=== PATIENT | female | born 1980 | race Caucasian/White ===

== ENCOUNTER 2018-10-13 12:20 | Day surgery (SDC) | payer OTHER, SELFPAY ==
--- NOTE | 2018-10-12 12:45 | HP.PCM_ITS ---
History and Physical Date of Admission: 10/13/18 38 year old who presents with complaints of?heavy and irregular bleeding.Bleeds for up to 3 weeks at a time. ?Some clots. ?Sometimes heavy. ?[place] and tired w/ menses. ?Also c/o acne breakouts past 6 months, face and extremities as well. ?Irritability. ?Cramping mild to moderate, doesn't limit activites. ?Fatigue does limit activities. ?Feels immune system is down. ?This week she notes she feels orthostatic hyptoension. ?When changes position gets lightheaded. ? ? LMP:?Patient's last menstrual period was 09/15/2018 (exact date).? Up until this past year they were absent. ?Was on meds that suppressed her menses (psychiatric). ?When stopped them pain was heavy. Heavy bleeding??Yes Intermenstrual bleeding/spotting??No Dysmenorrhea??Yes History of fibroids??No History of endometrial polyps??on last US report only ? Sexually active:?Yes History of STDS:?None Patient concerns for STD exposure:?No. Pain with intercourse:?No Postcoital bleeding:?No ? Last Pap:?2015?normal??HPV: negative History of abnormal pap:?Yes ? PAST?MEDICAL?HISTORY PAST MEDICAL HISTORY Diagnosis Date ? Abnormal glandular Papanicolaou smear of cervix 2006 ? Abn. Pap smear (cervix)-cervical dysplagia ? Cyclothymic disorder ? ? Depression ? ? PTSD (post-traumatic stress disorder) ? ? Spontaneous 1999 ? no D&C ? Spontaneous 07/2007 ? no D&C PAST?SURGICAL?HISTORY PAST SURGICAL HISTORY Procedure Laterality Date ? DELIVERY ONLY ? 2009 ? , low transverse ? COLPOSCOPY ([employer] DEPT)_*FL ? 2006 ? x 2 ? LEEP PROCEDURE ([employer] DEPT)_*FL ? 2006 ? cervical dysplagia ? RECONSTRUCT PROX HUMERAL IMPLANT ? ? ? Arthroplasty, shoulder FAMILY?HISTORY FAMILY HISTORY Problem Relation Age of Onset ? None Mother ? ? Hyperlipidemia Mother ? ? Hypertension Mother ? ? Obesity Father ? ? Hyperlipidemia Father ? ? Hypertension Father ? ? Macular Degen Father ? ? Cancer Maternal Grandfather ?Lung-Smoker ? Cancer Paternal Grandfather ? ? Heart Paternal Grandfather ? SOCIAL HISTORY? SOCIAL?HISTORY Social History ? Tobacco Use ? Smoking status: Light Tobacco Smoker ? ? Packs/day: 2.00 ? ? Types: Cigarettes ? Smokeless tobacco: Never Used ? Tobacco comment: 5 cigarettes per day . Quit x 2months. Resumed Mar 2016 . Substance Use Topics ? Alcohol use: No ? Drug use: No ? REVIEW OF SYSTEMS General - wt loss 63 lbs, attempted Endocrine:?,?no heat or cold intolerance, no p;olyuria, or polydipsia, no hirsutism or hair thining. Acne?YES. Abdomen:?No abdominal pain, nausea, vomiting, diarrhea, or constipation. ??No bloating, early satiety, indigestion, or increased flatulence. Bladder:?No dysuria, gross hematuria, urinary frequency, urinary urgency, or incontinence. ? EXAM:?BP 112/74 Wt 214 lb (97.1kg) LMP 09/15/2018? GENERAL:?pleasant, ?female in no apparent distress HEENT:?Normocephalic, atraumatic, mucus membranes moist and no lesions NECK:?Supple, full range of motion, no adenopathy and thyroid normal DERMATOLOGY:?Normal, without lesions, non-icteric, non-hirsute and?cystic acne extremeties, chest, less on face, mostly acne vulgaris on face CHEST:?Normal inspiratory effort ABDOMEN:?soft, non-tender and no masses PELVIC:?external genitalia normal, normal Bartholin's glands, urethra, Natural Steps's glands, no vulvar lesions, no cervical lesions, good vaginal support, physiologic discharge present, normal appearing perineal body and perianal region BIMANUAL:?uterus normal size, shape and consistency, no adnexal masses and non- tender IMAGING pelvic US reviewed ? ASSESSMENT:?endometrial polyp, menorhagia, contraception discussion, ? PLAN: risks benefits and alternatives to various therapeutic options were discussed with the patient, her questions were answered her satisfaction. She desires to proceed with hysteroscopy dilation and curettage, possible polyp resection and Mirena IUD insertion. This physical exam was completed in my office on 10/03/18 ? Yasmeen Phillips MD?
[2018-10-13] VITALS (8 sets, daily range): BP systolic 93–115; BP diastolic 68–91; PULSE 94–104; RESP 16; TEMP 36.1–36.6; O2SAT 94–98; BMI 38.7
[2018-10-13 12:55] LABS: Internal QC Validated? YES +Cl - CLEAR BKGD; Pregnancy, Urine Negative Negative
[2018-10-13] MEDS: Lactated Ringers 1,000 ML 50 ML IV (12:58)
[2018-10-13] MEDS: Ketorolac 30 MG/ML Syringe IV (13:02)
[2018-10-13] MEDS: Acetaminophen 500 MG Tablet 1000 MG PO (13:02)
--- NOTE | 2018-10-13 13:45 | EMB_PTH ---
PATIENT: SANGEETA TEJADA LOC: [facility] [place] U#:[id number] AGE/SX: 38/F ROOM: RE10/13/[address]: Dr. Yasmeen Phillips MD : 1980 BED: DIS: 10/13/2018 SPEC #: [id number] RECD: 10/13/18 16:37 STATUS: TEAGAN FAULKNER #: [id number] BARTOLO: 10/13/18 13:[address]: Yasmeen Phillips DEPT: SURGICAL PATHOLOGY RECD BY: Vahid Mills ENTERED: 10/14/18 10:03 SP TYPE: ENDOM BX/C MAYUR DR: Jenna Barraza Tissues: Endometrium, NOS Procedures: Surgery Specimen Level IV HEADER OPERATION: Hysteroscopy, dilation and curettage, Mirena IUD insertion PRE-OP DIAGNOSIS: Endometrial polyp, menorrhagia, contraception discussion TISSUE SUBMITTED: Endometrial curettings MICROSCOPIC DIAGNOSIS Endometrium, curettings: Transition endometrium with stromal and focal glandular breakdown. Rare strips of benign superficial squamous mucosa. Strips of benign superficial endocervix. See comment. AM:giancarlo 10/18/18 COMMENT Some of the fragments have a polypoid appearance and may represent fragments of a polyp. Clinical correlation is suggested. MICROSCOPIC DESCRIPTION Slides are reviewed. GROSS DESCRIPTION Received in fixative is one container labeled with the patient's name and designated endometrial curettings. The specimen consists of multiple fragments of hemorrhagic soft tissue mixed with mucoid tissue and blood clot that in aggregate measure 5 x 3 x 0.3 cm. The entire specimen is submitted in two cassettes. / SJ:giancarlo 10/14/18 TC:5 CPT: 33583
[2018-10-13] MEDS: Lactated Ringers 1,000 ML 75 ML IV (13:50)
--- NOTE | 2018-10-13 13:51 | PCM.DC.D&C ---
Discharge Diet: No Restrictions Discharge Activity: Return to Normal Activity, May Shower, May Take a Tub Bath - in 2 weeks. Return to work on:: 10/18/18 May shower in (days): 1 May resume sexual activity in: 2 weeks Call your doctor if your incision/area has: Sudden Increased Bleeding, Foul Smelling Discharge Call your doctor if you observe: Fever of 101 or Higher, Using more than one pad per hour - for 2 hrs in a row Allergies/Adverse Reactions: Allergies hydrocodone [From Vicodin] Allergy (Verified 10/13/18 12:37) Vomiting Sulfa (Sulfonamide Antibiotics) Allergy (Verified 10/13/18 12:37) Hives Medications to take at Discharge Acetaminophen [Tylenol] 500 mg PO Q6H PRN PRN 10/10/18 Ibuprofen 200 mg PO PRN PRN 10/10/18 Spironolactone [Aldactone] 25 mg PO DAILY 10/10/18 cycloBENZAPRine HCl [Flexeril] 10 mg PO TID PRN PRN 10/10/18 Ibuprofen [Motrin] 600 mg PO Q6H PRN #60 tab 10/13/18 Oxycodone HCl/Acetaminophen [Percocet 5/325] 1 tablet PO Q8 PRN 4 Days #8 tablet 10/13/18 The following prescriptions were given: Ibuprofen [Motrin] 600 mg PO Q6H PRN #60 tab PRN Reason: Pain Transmission Status: Pending to [id number] Oxycodone HCl/Acetaminophen [Percocet 5/325] 1 tablet PO Q8 PRN 4 Days #8 tablet PRN Reason: Breakthrough Pain (>4/10) Transmission Status[facility] Primary Care Physician: Jenna Barraza [Primary Care Provider] - Test Results: Test results from this visit will be discussed in further detail at your follow-up appointment, if applicable. Please Follow Up With: Yasmeen Phillips MD - [phone] When: 2-3 months or as needed
--- NOTE | 2018-10-13 14:17 | OP.PCM_ITS ---
Report of Operation Date of Procedure: 10/13/18 Pre-Operative Diagnosis: menorrhagia, dysmenorrhea Post-Operative Diagnosis: same Surgery/Procedure Performed:: Hysteroscopy D&C with Mirena intrauterine device insertion Description of Surgical Findings:: Normal-appearing cervix, vagina and uterine cavity lending consultant: Kayy Cardoza Type of Anesthesia:: MAC/Supplemental/Local Anesthesiologist: Nate Robison Special Medications: None Specimen's removed: Endometrial curettings Drains: None Estimated Blood Loss (mL): 10 Fluids Replaced: 600 cc lr Description of Procedure: The patient was taken to the OR where she was prepped and draped in dorsal lithotomy position. The weighted speculum was placed in the vagina and the anterior lip of the cervix was grasped with a single-tooth tenaculum. A paracervical block was administered with 1% lidocaine with 1-100,000 epinephrine solution. The cervix was dilated serially with Hegar dilators. The 5mm hysteroscope was placed into the uterine cavity and the above findings were noted. Bilateral tubal ostia were identified. The hysteroscope was removed. A gentle sharp curettage was done of the uterine cavity. The uterus sounded to 7-1/2 cm. The Mirena intrauterine device was placed in the usual sterile fashion without complications. The strings were trimmed to 2 cm. The instruments were removed from the vagina. The specimen was handed off and sent to pathology. All sponge and needle counts were correct. Vaginal sweep was performed by me. The patient was awakened and taken to the recovery room in stable condition. Hysteroscopic ins: 150cc normal saline Hysteroscopic outs:120cc Findings: Endometrial cavity: Normal, no fibroids or polyps noted Cervix: Normal Vagina: Normal Grafts/Implants Used: None - Complications None - Admit VTE Documentation VTE Present on Admission: No VTE Mechan Device Prophylaxis: SCD's VTE Pharm Prophylaxis ordered?: No Reason prophylaxis not ordered:: Procedure Not Indicated
[2018-10-13] MEDS: oxyCODONE 5 MG Tablet PO (15:27)
== END 2018-10-13 15:49 | disposition home or self-care (01) ==
LOC: SDC 12:21 → AC 12:22
PROVIDERS: Anesthesiology; Family Provider Family Medicine; PCP Family Medicine; Referring Provider Obstetrics & Gynecology; Visit Provider Obstetrics & Gynecology
PROC: (CPT 58300; principal; 2018-10-13 13:30)
DX: N94.6 Dysmenorrhea, unspecified (principal); N92.0 Excessive and frequent menstruation with regular cycle; L70.9 Acne, unspecified; F17.210 Nicotine dependence, cigarettes, uncomplicated; G47.30 Sleep apnea, unspecified; Z79.899 Other long term (current) drug therapy
CPT/HCPCS: 58300; 58558; 81025; 88305; J7120; J2405

== ENCOUNTER 2018-10-16 18:16 | Emergency (ER) | payer OTHER, SELFPAY ==
[2018-10-13 12:46] VITALS: BMI 38.7
[2018-10-16 18:18] VITALS: BP 126/86; PULSE 102; RESP 17; TEMP 35.8; O2SAT 99; BMI 38.0
[2018-10-16] MEDS: 0.9% Normal Saline 1,000 ML 1000 ML IV (19:21)
[2018-10-16] MEDS: Ketorolac 30 MG/ML Syringe IV (19:22)
[2018-10-16] MEDS: DiphenhydrAMINE 50 MG/ML Syringe 25 MG IV (19:23)
[2018-10-16] MEDS: Metoclopramide 10 MG/2 ML Vial IV (19:24)
--- NOTE | 2018-10-16 20:08 | ED.DCSUM_ITS ---
History of Present Illness Chief Complaint: Headache Informant: Patient Onset: Days - Four days Context: Gradual Onset Timing: Waxes and wanes Current Severity: Moderate Maximum Severity: Moderate Narrative: Patient presents with chief complaint of headache. 4 days ago she had a hysteroscopy and a D&C and Mirena was placed. She left the hospital at 4 PM feeling well. She states the following day she had nausea and generalized headache, bordering on migraine. She thought it might be secondary to Percocet so that medication was stopped. She tried ibuprofen and Tylenol without improvement of her headache. She tried Imitrex with only mild improvement. Her DIRECTOR OF RELIGIOUS ACTIVITIES called Phenergan and to help control her nausea. She complains of pain to the bilateral temples, forehead, and base of her occiput. She does have a history of migraines but states she usually has light sensitivity with her migraines and does not have that complaint currently. She denies recent head trauma or URI symptoms. She did not have spinal anesthesia performed for her procedure. Past Medical History - Allergies and Home Meds Allergies/Adverse Reactions: Allergies hydrocodone [From Vicodin] Allergy (Verified 10/16/18 18:16) Vomiting Sulfa (Sulfonamide Antibiotics) Allergy (Verified 10/16/18 18:16) Hives Primary Care Physician: Jenna Barraza [Primary Care Provider] - Prior records reviewed: Yes Past Medical History: - - Reviewed Lives: Spouse/ Significant Other Smoking Status: Current every day smoker Review of Systems General: Denies: Chills, Fever Eyes: Denies: Visual changes - bilaterally ENT: Denies: Bilateral ear pain Cardiovascular: Denies: Chest pain Respiratory: Denies: Dyspnea Gastrointestinal: Reports: Nausea, Vomiting. Denies: Abdominal pain, Diarrhea Musculoskeletal: Denies: Neck pain, Back pain Skin: Denies: Rash Neurological: Reports: Headache. Denies: Weakness, Parasthesia Hematologic: Denies: Easy bruising Allergy: Denies: Uticaria Physical Exam Vital Signs/Narrative: Vital Signs Temp Pulse Resp BP Pulse Ox 10/16/18 18:18 96.4 F L 102 H 17 126/86 H 99 Inital Vital Signs reviewed: Yes General: Well nourished, Well developed Head: Normocephalic Eyes: Perrl ENT: Moist mucous membranes, - Neck: Supple - No meningismus Cardiovascular: Regular rate, Regular rhythm Respiratory: No distress, CTA bilaterally Abdomen: Soft, Nontender Extremities: Nontender Skin: Normal color, No rash Neurological: Alert, Oriented x3, Normal Strength, Normal Sensation Psychological: Normal affect Diagnostic/Tx/Re-eval - Medical Decision Making Patient was given Toradol, Reglan, Benadryl, and IV fluids. On repeat evaluati on she feels significantly improved. I will write her refills for her Imitrex and Flexeril, which she takes for muscle tension which triggers her headaches. She will follow-up with her primary care physician. ED Disposition - Plan for ED Patient: Disposition: Home or Assisted Living Diagnosis: Migraine Instructions: ED, Migraine (Classical) Prescriptions: cycloBENZAPRine HCl [Flexeril] 10 mg PO TID PRN #20 tablet PRN Reason: Muscle Spasm Sumatriptan Succinate [Imitrex] 50 mg PO .X1 PRN PRN #14 tablet PRN Reason: Migraine Symptoms Referrals: Jenna Barraza [Primary Care Provider] - 1-2 Days if not improving
[2018-10-16 20:41] VITALS: PULSE 90; RESP 17; O2SAT 98
== END 2018-10-16 20:42 | disposition home or self-care (01) ==
PROVIDERS: Emergency Provider Emergency Medicine; Family Provider Family Medicine; PCP Family Medicine
DX: G43.909 Migraine, unspecified, not intractable, without status migrainosus (principal); F17.200 Nicotine dependence, unspecified, uncomplicated
CPT/HCPCS: 96361; 96374; 96375; 99283; J7030; A4216

== ENCOUNTER 2018-12-29 10:56 | Emergency (ER) | payer OTHER, SELFPAY ==
[2018-12-29 10:57] VITALS: BP 124/86; PULSE 122; RESP 18; TEMP 36.6; O2SAT 100; BMI 41.1
--- NOTE | 2018-12-29 11:13 | RAD_ITS ---
STUDY: X-RAY CHEST REASON FOR EXAM: Female, 38 years old. Nausea and vomiting. Fever. Cough. TECHNIQUE: PA and lateral views of the chest. COMPARISON: None. FINDINGS: Focal lingular infiltrate. There is no demonstrated pleural abnormality. Normal size heart. Normal mediastinum and gabriella. Normal visualized pulmonary arteries. Normal visualized aortic arch and descending thoracic aorta. Normal visualized thoracic spine. Normal visualized ribs, clavicles, and shoulders. There is no demonstrated abnormality of the visualized soft tissue structures of the upper abdomen. RAD/Chest PA and Lateral IMPRESSION: Focal lingular infiltrate. Follow-up recommended. Electronically Signed: Christopher Beauchamp, at 12:31 EST , Service support ,
--- NOTE | 2018-12-29 11:33 | ED.DCSUM_ITS ---
History of Present Illness Chief Complaint: General Illness Informant: Patient Onset: Days - 4 Context: Gradual Onset Timing: Continuous Current Severity: Severe Maximum Severity: Severe Associated Symptoms: Nasal Congestion, Headache, Sinus Pressure, Nausea, Vomiting, Shortness of Breath, Productive Cough Narrative: Patient is a 38-year-old female with history of PTSD, fibromyalgia, depression and obstructive sleep apnea presenting with worsening upper story symptoms. She states she is been sick for the past week and went to urgent care yesterday. At that time she was diagnosed with sinusitis and started on Augmentin. She had 3 doses total. She is also started on Flonase which he feels is giving her headache. Patient states she still feels congested and has postnasal drip she also is complaining of lateral neck pain bilaterally but denies any stiffness. She denies any fever but does have chills. She is been nauseous for the last week but had 3 episodes of vomiting overnight. She is had a cough that progressed from a dry cough to wet cough over the last 24 hours. She cannot tell me what color the sputum has been. She denies any abdominal pain or urinary symptoms. She states is a normal bowel movements. She is reporting decreased appetite. She admits to tobacco use but denies any alcohol or illicit drug use. She is concerned because she is feeling hoarse. She denies any other complaints at this time. Past Medical History - Allergies and Home Meds Allergies/Adverse Reactions: Allergies hydrocodone [From Vicodin] Allergy (Verified 12/29/18 11:00) Vomiting Sulfa (Sulfonamide Antibiotics) Allergy (Verified 12/29/18 11:00) Hivmargie Primary Care Physician: Jenna Barraza [Primary Care Provider] - Past Medical History: - - PTSD, fibromyalgia, obstructive sleep apnea, de pression Surgical History: - - D&C, mediastinal mass removed (benign) Smoking Status: Former smoker Alcohol: None Drugs: None Review of Systems General: Reports: Chills, Malaise. Denies: Fever Eyes: Denies: Visual changes - bilaterally, Blurred Vision - bilaterally Cardiovascular: Denies: Chest pain, Palpitations, Heart racing Respiratory: Reports: Dyspnea, Cough, Sputum. Denies: Dyspnea on exertion, Orthopnea Gastrointestinal: Reports: Nausea, Vomiting. Denies: Abdominal pain, Diarrhea, Constipation Genitourinary: Denies: Dysuria, Hematuria, Frequency Musculoskeletal: Reports: Myalgias, Neck pain. Denies: Arthralgias, Swelling, Extremity Pain Skin: Denies: Rash, Wounds Neurological: Reports: Headache, - - Lightheaded. Denies: Weakness Physical Exam Vital Signs/Narrative: Vital Signs Temp Pulse Resp BP Pulse Ox 12/29/18 10:57 97.8 F 122 H 18 124/86 H 100 Inital Vital Signs reviewed: Yes General: Well nourished, Well developed Head: Normocephalic, Atraumatic. Negative for: Frontal Tenderness, Maxillary Tenderness, Sinus Tenderness Eyes: Perrl, EOMI Ears: Normal external canal, TM's clear Nose: No Rhinorrhea, Congestion. Negative for: Purulent Drainage Mouth/Throat: Posterior Oropharyngeal Erythema, - - No tonsillar edema or exudate Tonsils: Right Tonsilar Erythema, Left Tonsilar Erythema, -. Negative for: Right Tonsilar Exudates, Left Tonsilar Exudates, Right Tonsilar Swelling, Left Tonsilar Swelling Neck: Supple, Nontender, No Meningismus Cardiovascular: Regular rhythm, No murmurs, Tachycardia Respiratory: No distress, CTA bilaterally, Chest nontender Abdomen: Soft, Nontender, Nondistended, Normal bowel sounds Back: Nontender, Normal Inspection Extremities: Nontender, No edema Skin: Normal color, No rash Neurological: Alert, Oriented x3, Cranial nerves II-XII grossly intact, Normal Strength, Normal Sensation Psychological: Normal affect Diagnostic/Tx/Re-eval Chest X-Ray - ED: 2 View, Read by ED Physician, Read by Radiologist, - - Left lingular infiltrate Clinical Impression(s) from Imaging Studies Chest X-Ray 12/29/18 11:13 IMPRESSION: Focal lingular infiltrate. Follow-up recommended. Electronically Signed: Christopher Beauchamp, at 12:31 EST , Service support , Laboratory Data 12/29/18 12/29/18 11:29 11:29 WBC 11.4 H RBC 4.42 Hgb 13.5 Hct 40.8 MCV 92.3 MCH 30.5 MCHC 33.1 RDW Std Deviation 43.4 RDW Coeff of Zachary 12.9 Plt Count 351 MPV 9.5 Immature Gran % (Auto) 0.400 Neut % (Auto) 76.0 H Lymph % (Auto) 14.9 L Shoshone % (Auto) 5.3 Eos % (Auto) 2.7 Baso % (Auto) 0.7 Absolute Neuts (auto) 8.7 H Absolute Lymphs (auto) 1.70 Nucleated RBC % 0 Sodium 142 Potassium 3.8 Chloride 110 H Carbon Dioxide 25.0 Anion Gap 7 BUN 5 L Creatinine 0.65 Estim Creat Clear Calc 91.90 Est GFR (MDRD) Af Amer 131 Est GFR (MDRD) Non-Af 108 BUN/Creatinine Ratio 7.7 L Glucose 120 H Calcium 8.6 Total Bilirubin 0.30 AST 13 L ALT 22 Alkaline Phosphatase 105 Total Protein 6.8 Albumin 3.4 Globulin 3.4 Albumin/Globulin Ratio 1.0 Lipase 67 L - Medical Decision Making Patient is evaluated for worsening cough, upper respiratory symptoms and malaise. Physical exam is consistent with a viral/respiratory illness. Chest x-ray does show left lingual infiltrate. This matches patient's clinical picture as she feels that her cough has worsened. Patient is initially tachycardic on arrival. She is given IV fluids. She does not have any chest pain or sensation of palpitations. Patient is quite of a headache. It appears to be a tension headache. She does not have any meningeal signs. She is given IV Toradol. Patient has a normal neurologic exam. Patient is given first dose of doxycycline in the emergency room. She is instructed to stop taking the Augmentin. Patient does not have a history of hypertension. She is instructed to take [id number] cold and flu medications as needed for her congestion and further symptomatic relief. She is counseled on the typical timeframe it takes to heal from pneumonia. Patient is counseled on signs and symptoms requiring return to the emergency room. Patient verbalizes agreement and understand this plan. Patient discharged home in stable and improved condition. ED Disposition - Plan for ED Patient: Disposition: Home or Assisted Living Diagnosis: Pneumonia involving left lung Instructions: PNEUMONIA (Adult) Prescriptions: Doxycycline 100 mg PO BID #20 cap Prescription Printed Albuterol Inhaler [Ventolin Hfa] 1 - 2 puff INHALATION Q4H PRN PRN #1 inhaler PRN Reason: Wheezing Prescription Printed Referrals: Jenna Barraza [Primary Care Provider] - Additional Instructions: Stop taking antibiotics prescribed yesterday and start taking the ones prescribed today. Use inhaler as needed for cough or shortness of breath. Take [id number] medications for congestion/cold and flu medicine as well. Return the emergency room with worsening symptoms. Follow-up with your primary care doctor next week. Make sure you drink plenty of fluids and get plenty of rest.
[2018-12-29 11:34] LABS: Absolute Neutrophil Count 8.7 X10^3/uL (2.0-7.7); Basophil# 0.08 X10^3/uL; Basophil% 0.7 % (0-1); Eosinophil# 0.31 X10^3/uL; Eosinophils% 2.7 % (0-5); Hematocrit 40.8 % (37-47); Hemoglobin 13.5 g/dL (12.0-15.0); Lymphocyte % 14.9 % (19-41); Mean Corp Hgb Conc 33.1 g/dL (32-36); Mean Corpuscular Hgb 30.5 pg (27.0-32.0); Mean Corpuscular Volume 92.3 fL (81-99); Mean Platelet Vol. 9.5 fl (6.2-12.0); Monocyte% 5.3 % (0-10); NRBC Flagged by Analyzer 0 % (0-5); Neutrophil # 8.65 X10^3/uL (2.7-7.7); Platelet Count 351 K/mm3 (150-450); RBC Distribution Width CV 12.9 % (11.6-14.6); RBC Distribution Width SD 43.4 fl (35.1-43.9); Red Blood Count 4.42 M/mm3 (4.2-5.4); White Blood Count 11.4 K/mm3 (4.4-11.0)
[2018-12-29] MEDS: 0.9% Normal Saline 1,000 ML 1000 ML IV (11:38)
[2018-12-29 11:55] LABS: AST(SGOT) 13 U/L (15-37); Alanine Aminotransfer ALT/SGPT 22 U/L (13-56); Albumin, Serum 3.4 g/dL (3.2-5.0); Alkaline Phosphatase 105 U/L (45-117); Anion Gap 7 (5-15); BUN 5 mg/dL (7-18); BUN/Creat Ratio 7.7 RATIO (10-20); Calcium,Total 8.6 mg/dL (8.5-10.1); Chloride 110 mmol/L (98-107); Creatinine, Serum 0.65 mg/dL (0.55-1.02); EST Glomerular Filtration Rate 108 mL/min (>60); Est Glom Filt Rate - Afr Amer 131 mL/min (>60); Globulin 3.4 g/dL (2.2-4.2); Glucose 120 mg/dL (74-106); Lipase 67 U/L (73-393); Potassium 3.8 mmol/L (3.5-5.1); Protein, Total 6.8 g/dL (6.4-8.2); Sodium Level 142 mmol/L (136-145)
[2018-12-29] MEDS: Ketorolac 15 MG/ML Vial IV (12:49)
[2018-12-29 13:16] VITALS: BP 134/76; PULSE 61; RESP 16; O2SAT 97
[2018-12-29] MEDS: Doxycycline 100 MG CAPSULE PO (13:16)
== END 2018-12-29 13:17 | disposition home or self-care (01) ==
PROVIDERS: Emergency Provider Emergency Medicine; Family Provider Family Medicine; PCP Family Medicine
DX: J18.9 Pneumonia, unspecified organism (principal); R51 Headache; Z72.0 Tobacco use
CPT/HCPCS: 71046; 80053; 83690; 85025; 96361; 96374; 99284; J7030; A4216

== ENCOUNTER → 2019-01-30 15:29 | Outpatient (CLI) | payer OTHER, SELFPAY ==
[2019-01-30 17:26] LABS: Amphetamine Urine VISTA NEGATIVE (<1000 ng/mL); Barbiturate Urine VISTA NEGATIVE (< 200 ng/mL); Benzodiazepine Urine VISTA NEGATIVE (< 200 ng/mL); Cocaine Urine VISTA NEGATIVE (< 300 ng/mL); Ecstacy Urine VISTA NEGATIVE (< 500 ng/mL); Methadone Urine VISTA NEGATIVE (< 300 ng/mL); PCP Urine VISTA NEGATIVE (< 25 ng/mL); THC Urine VISTA NEGATIVE (< 50 ng/mL); Vista UDS pH Range 5
== END ==
PROVIDERS: Family Provider Family Medicine; PCP Family Medicine; Referring Provider Family Medicine; Visit Provider Anesthesiology Pain Medicine
DX: F11.20 Opioid dependence, uncomplicated (principal)
CPT/HCPCS: 80307

== ENCOUNTER → 2019-02-24 13:25 | Outpatient (CLI) | payer OTHER, SELFPAY | PROVIDERS: Family Provider Family Medicine; PCP Family Medicine; Referring Provider Orthopaedic Surgery Sports Medicine; Visit Provider Orthopaedic Surgery Sports Medicine | DX: M24.151 Other articular cartilage disorders, right hip (principal) ==

== ENCOUNTER 2019-08-29 14:00 | Outpatient (RCR) | payer OTHER, SELFPAY ==
--- NOTE | 2019-04-21 12:02 | HP.PTEVAL ---
Patient's Visit Information SANGEETA TEJADA is a 38 year old F referred to Physical Therapy by BRUNO HIDALGO with a diagnosis of B hip pain. Date of Evaluation: 04/21/19 Physical Therapist: Deondre Whelan, PT, ATC - Visit Plan Frequency: 3x /Week Duration: 4-6 Weeks Plan: Aquatic therapy consisting of core stab ex's, B LE strengthening ex's, B UE strengthening ex's, and HEP - Subjective Findings: Pt reports she has had L hip pain for greater than 3 years. Pt reports she has no idea how her pain originated. Pt reports she did have a Hx of depression and physical ailments which made her nearly bed ridden for a couple years. Pt reports this caused her to become very weak and inactive. Pt reports since then, she was able to get offf some of her meds and has become more healthy by becoming more active and in a better state with her mental health. Pt notes she has had an arthrogram of her R hip which revealed a tear of her R labrum. Pt has been getting injections in order to bypass surgery at this time. Pt notes she has a hip deformity as well. Pt notes she i s scheduled for a lidocaine injection next week. Pt reports sleep diff secondary to pain, no tingling or njumbness in LE's . Pt has been intermittently using crutches secondary to pain. walking increases pain as well as stair negotiation. pain ranges from 3-10/10 - Pain B hip pain Pain Intensity (Out of 10): 3 Pain Intensity Range: 10 - Objective Neuro: B LE sensation is WNL to light touch. B patellar reflex= 2/3. MMT: B LE's are grossly 4/5. ROM: Pt is moderately limited with R hip IR/ER. All other motions are WFL. Gait: Pt was able to ambulate 478 feet until having to sit down secondary to pain and fatigue. Pt ambulates with a very slow cadance and reaches out to the wall for support. - Goals Goal 1:: Decrease B hip pain x 25% to aid with sleep Goal Time Frame: 4-6 Weeks Goal 2:: Increase B LE strength x 1 grade to aid with stair negotiation Goal Time Frame: 4-6 Weeks Goal 3:: I with HEP Goal Time Frame: 4-6 Weeks - Rehabilitation Potential Rehabilitation Potential: Good - Anticipated Interventions Patient/Client Instruction: Educate patient on: Condition, Plan of Care For the Purpose of:: To improve self management Therapeutic Exercise to Include: Strength training, Endurance training, Dynamic Lumbar Stabilization, Scapular Strength/Stabilization For the Purpose of:: To decrease pain, To improve muscle performance and motor function Thank you for the opportunity to evaluate your patient. For Medicare and Medicare HMO plans, please review the plan of care and approve it. It will need to be FAXED BACK to us at [phone] for Medicare purposes. For Medicare only, by signing this I certify the plan of care. Please let me know if there are questions or concerns regarding this plan of care. Physician Signature: Date:
--- NOTE | 2019-07-25 13:38 | HP.PTREVAL ---
BRUNO HIDALGO, It has been my pleasure to treat SANGEETA TEJADA over the last 4 visits for B hip pain. Please see the progress note below for an update on the physical therapy plan of care! Subjective: Pt returns today after an extended illness. Pt reports she had all the signs of COVID, but tested negative. Pt reports in the mean time, she has gained a systemic flare up throughout her body that the doctors think is arthritis. Pt reports she is to have surgery on her hip in the future, but she has to get stronger first. Objective/Function: MMT: B hip flex, knee flex, and hip add 4/5. All other B LE 5/5 throughout. Pain: ranges from 0-10/10. Pt has regressed with overall tolerance for activity while being off sick. Pt is able to ambulate 1200 feet at a good pace. Pt still displays functional weakness and severe pain at times Plan Plan: Cont with aquatic therapy program consistinig of B LE and core strengthening Goals Goal 1:: Decrease B hip pain x 25% to aid with sleep Goal Time Frame: 4-6 Weeks Goal Progress: Progressing Goal 2:: Increase B LE strength x 1 grade to aid with stair negotiation Goal Time Frame: 4-6 Weeks Goal Progress: Progressing Goal 3:: I with HEP Goal Time Frame: 4-6 Weeks Goal Progress: Progressing Anticipated Interventions Patient/Client Instruction: Educate patient on: Condition, Plan of Care For the Purpose of:: To improve self management Therapeutic Exercise to Include: Strength training, Endurance training, Dynamic Lumbar Stabilization, Scapular Strength/Stabilization For the Purpose of:: To decrease pain, To improve muscle performance and motor function Please do not hesitate to contact me at [phone] by phone or if you have questions or concerns regarding this new plan of care! Sincerely, Deondre Whelan, PT, ATC
--- NOTE | 2019-08-29 14:33 | HP.PTREVAL ---
BRUNO HIDALGO, It has been my pleasure to treat SANGEETA TEJADA over the last 10 visits for B hip pain. Please see the progress note below for an update on the physical therapy plan of care! Subjective: Pt reports she has gotten worse since beginning PT. Has been told she has an RA flare up and this is what has caused her pain Objective/Function: Hip pain ranges from 0-10 out of 10. B LE strength is now 5/5 throughout. Pt is progressing with HEP Plan Plan: Pt will cont with ex's at home for 3 weeks. Recheck at that time, and consider if continuing is appropriate after pain meds are altered by Goals Goal 1:: Decrease B hip pain x 25% to aid with sleep Goal Time Frame: 4-6 Weeks Goal Progress: Progressing Goal 2:: Increase B LE strength x 1 grade to aid with stair negotiation Goal Time Frame: 4-6 Weeks Goal Progress: Goal Met Goal 3:: I with HEP Goal Time Frame: 4-6 Weeks Goal Progress: Progressing Anticipated Interventions Patient/Client Instruction: Educate patient on: Condition, Plan of Care For the Purpose of:: To improve self management Therapeutic Exercise to Include: Strength training, Endurance training, Dynamic Lumbar Stabilization, Scapular Strength/Stabilization For the Purpose of:: To decrease pain, To improve muscle performance and motor function Please do not hesitate to contact me at [phone] by phone or if you have questions or concerns regarding this new plan of care! Sincerely, Deondre Whelan, PT, ATC
--- NOTE | 2019-11-15 09:26 | HP.PT.NRP ---
SANGEETA TEJADA was seen in my office for initial evaluation on 04/21/19. The following Plan of Care was established for this patient: Initial Frequency: 3x /Week Initial Duration: 4-6 Weeks Patient/Client Instruction: Educate patient on: Condition, Plan of Care For the Purpose of:: To improve self management Therapeutic Exercise to Include: Strength training, Endurance training, Dynamic Lumbar Stabilization, Scapular Strength/Stabilization For the Purpose of:: To decrease pain, To improve muscle performance and motor function This patient was last seen in our office . Pertinent comments regarding their Physical therapy will appear below: Pt was last scheduled for PT on September 19, 2019 where she no showed for her appointment. Pt has not returned since that date and is discontinued at this time. At this point I will be discontinuing this patient from physical therapy. I would be happy to see this patient again in the future if found appropriate by the physician. Thank you! Deondre Whelan, PT, ATC
== END 2019-08-29 19:00 | disposition home or self-care (01) ==
LOC: PT 14:00
PROVIDERS: PCP Family Medicine
DX: M25.552 Pain in left hip (principal); M25.551 Pain in right hip
CPT/HCPCS: 97113; 97161; 97164

== ENCOUNTER → 2019-11-23 11:02 | Outpatient (CLI) | payer OTHER, SELFPAY ==
[2019-11-23 12:42] LABS: Amphetamine Urine VISTA NEGATIVE (<1000 ng/mL); Barbiturate Urine VISTA NEGATIVE (< 200 ng/mL); Benzodiazepine Urine VISTA NEGATIVE (< 200 ng/mL); Cocaine Urine VISTA NEGATIVE (< 300 ng/mL); Ecstacy Urine VISTA NEGATIVE (< 500 ng/mL); Methadone Urine VISTA NEGATIVE (< 300 ng/mL); PCP Urine VISTA NEGATIVE (< 25 ng/mL); THC Urine VISTA NEGATIVE (< 50 ng/mL); Vista UDS pH Range 5
== END ==
PROVIDERS: PCP Family Medicine; Referring Provider Anesthesiology Pain Medicine; Visit Provider Anesthesiology Pain Medicine
DX: F11.20 Opioid dependence, uncomplicated (principal)
CPT/HCPCS: 80307

== ENCOUNTER 2020-07-11 09:14 | Emergency (ER) | payer OTHER, SELFPAY ==
[2020-07-11 09:15] VITALS: BP 161/86; PULSE 103; RESP 16; TEMP 36.2; O2SAT 100; BMI 43.9
--- NOTE | 2020-07-11 09:44 | CT_ITS ---
STUDY: CT ABDOMEN AND PELVIS WITH CONTRAST REASON FOR EXAM: Female, 39 years old. Abdominal pain -- IV PO Contrast RADIATION DOSAGE (If Supplied By Facility): CTDIvol = ( 17.08 ) mGy, DLP = ( 1297.68 ) mGycm TECHNIQUE: Transaxial images were obtained from the dome of the diaphragm to the symphysis pubis with oral contrast. Oral and amp; IV Gastrografin and amp; 100mL Isovue-300 was administered. Sagittal and coronal images were reconstructed. Individualized dose optimization techniques were used for this CT. COMPARISON: None. FINDINGS: Minimal increased markings in the lingular segment of the left upper lobe suggestive of linear atelectasis and/or scarring. The visualized portions of the heart are within normal limits. Normal liver. Normal gallbladder and extrahepatic biliary system. Normal spleen. Normal pancreas. Normal bilateral adrenal glands. Normal right kidney. 2 mm nonobstructive calculus in the lower pole calyx of the left kidney. Normal visualized stomach. Normal small intestine. There are scattered colonic diverticula consistent with diverticulosis. The appendix is visualized and appears normal. Normal abdominal aorta. Normal inferior vena cava. There is borderline retroperitoneal lymphadenopathy with enlarged nodes no greater than 10mm in the short axis diameter. Normal urinary bladder. There is a 5.8 cm x 5.5 cm hypodense mass in the left adnexa. IUD is seen within the endometrium. There is a small umbilical hernia containing fat. Normal osseous structures. CT/Abdomen/Pelvis WITH Contrast IMPRESSION: 5.8 cm x 5.5 cm hypodense mass in the left adnexa. IUD is seen within the endometrium. Electronically Signed: Christopher Beauchamp MD at 12:23 EDT , Service support ,
--- NOTE | 2020-07-11 09:46 | EDS_ITS ---
HPI HPI - GI History of Present Illness Chief Complaint: Abd Pain Narrative Narrative: 39-year-old female presenting with abdominal pain and history of fevers over the course of this week. She states that she was previously seen and evaluated in the ED and had a CT scan which showed an ovarian cyst. She states she followed up with her [employer] who did a transvaginal ultrasound in office that showed a rupturing ovarian cyst. She states that she was previously on Nucynta for her pain from pain management however the pharmacy lost her prescription for this. She has not contacted pain management. Patient states that her pain is intermittent. It is sometimes in her left side of her abdomen and sometimes in the right side of her abdomen and now she has radiation to the back. Patient states that she is sometimes has the sweats. Her highest fever has been 101. Her temperature was 99.9 today. Denies dysuria. She states that her previous CT scan showed constipation however she has had diarrhea this week. She has been taking laxative. [facility] Medical History Asthma Home Medications spironolactone 25 mg PO DAILY 10/10/18 [History Last Taken 10/16/18] ibuprofen 600 mg PO Q6H PRN #60 tab 10/13/18 [Rx Last Taken 10/16/18] cyclobenzaprine 10 mg PO TID PRN #20 tab 10/16/18 [Rx Last Taken Unknown] promethazine 25 mg PO Q6H PRN PRN 10/16/18 [History Last Taken 10/16/18] sumatriptan succinate 50 mg PO .X1 PRN PRN #14 tab 10/16/18 [Rx Last Taken Unknown] albuterol sulfate 1 - 2 puff INHALATION Q4H PRN PRN #1 inhaler 12/29/18 [Rx Last Taken Unknown] doxycycline monohydrate 100 mg PO BID #20 cap 12/29/18 [Rx Last Taken Unknown] tapentadol [Nucynta] 100 mg PO DAILY 07/11/20 [History Last Taken Unknown] Allergy/AdvReac Type Severity Reaction Status Date / Time hydrocodone [From Vicodin] Allergy Vomiting Verified 07/11/20 09:18 Sulfa (Sulfonamide Allergy Hives Verified 07/11/20 09:18 Antibiotics) Social History Smoking Status: Former smoker ROS ROS ED Constitutional Constitutional ED: Denies chills, fever(s) or sweats Eyes Eyes: Denies blurry vision or change in vision ENT ENT ED: Denies ear pain, rhinorrhea or sore throat Cardiovascular Cardiovascular: Denies chest pain, palpitations or racing heartbeat Respiratory/Chest Respiratory/Chest: Denies cough, dyspnea or sputum Gastrointestinal Gastrointestinal: Reports abdominal pain, diarrhea and nausea; Denies const ipation or vomiting Genitourinary Genitourinary ED: Denies dysuria, hematuria or urinary frequency Musculoskeletal Musculoskeletal: Reports back pain; Denies arthralgias, myalgias or neck pain Integumentary Denies abscess, Abrasions or rash Neurologic Neurologic: Denies headache(s), paresthesias or weakness Psychiatric Psychiatric: Denies anxiety, depression, suicidal ideation or suicidal thoughts Endocrine Endocrinology: Denies polydipsia or polyuria EXAM Physical Exam Const Vital Signs: 07/11/20 09:15 Temperature 97.1 F L Temperature Source Temporal Pulse Rate 103 H Respiratory Rate 16 Blood Pressure 161/86 H Blood Pressure Mean 111 Pulse Ox 100 Oxygen Delivery Method Room Air Positive obese General Appearance ED: NAD; Negative for pallor Nutritional Appearance: obese HEENT Reports normocephalic, head/scalp atraumatic and moist mucous membranes normocephalic Eyes PERRL and EOMs intact bilaterally Chest Wall inspection of chest normal and palpation of chest normal Resp normal respiratory effort and clear to auscultation bilaterally Auscultation: Negative for rales, rhonchi or wheezes Cardio regular rate and regular rhythm GI normal to inspection, nondistended, normoactive bowel sounds and non-distended Inspection: abdominal distention Auscultation: normoactive bowel sounds Palpation: soft and tender other (Diffuse generalized tenderness of the abdomen.) Narrative: Deferred Back/Spine no CVA tenderness Back/Spine Narrative: Generalized lumbar tenderness to palpation. No midline spinal deformity or step-off. No rash or ecchymosis. General Back: Negative for CVA tenderness Extremity normal to inspection and full ROM General Extremety ED: Negative for tenderness Neuro oriented x3 and CN's II-XII intact bilaterally Sensorium / Orientation: alert Motor Exam: strength 5/5 throughout Psych mental status grossly normal Attitude: No agitated Skin no rashes or lesions noted and no wounds General Skin Exam: Negative for jaundice or pallor MDM MDM MDM Narrative Medical decision making narrative: Patient seen and evaluated on arrival for abdominal pain. She states he has had this pain. She is already had a CT scan which diagnosed her with a cyst as well as an ultrasound at her [employer]IE[employer] OFFICER's office who also stated she had a cyst. She was told that it is rupturing it may take 2 weeks. She is out of her Nucynta because the prescription was lost. Her vital signs are stable and she is afebrile. Lab work today is unremarkable. Urinalysis is negative. Again there is a cyst on the left ovary. It does not appear to be changed in size based on the patient's description. Patient was able to call her pharmacy and get the prescription corrected and she has this pain medicine now for home. She is counseled to follow-up with her [employer]IEF [employer]ETING OFFICER and her pain management doctor for pain control. She is given return precautions for the emergency room. Impression: 1. Left ovarian cyst Lab Data Labs: Laboratory Results - last 24 hr 07/11/20 07/11/20 07/11/20 10:10 10:10 10:20 WBC 9.4 RBC 4.49 Hgb 13.5 Hct 41.6 MCV 92.7 MCH 30.1 MCHC 32.5 RDW Std Deviation 43.6 RDW Coeff of Zachary 12.9 Plt Count 322 MPV 9.5 Immature Gran % (Auto) 0.400 Neut % (Auto) 71.2 H Lymph % (Auto) 22.3 [place] % (Auto) 5.7 Eos % (Auto) 0.1 Baso % (Auto) 0.3 Absolute Neuts (auto) 6.7 Absolute Lymphs (auto) 2.10 Nucleated RBC % 0 Sodium 140 Potassium 4.1 Chloride 107 Carbon Dioxide 29.0 Anion Gap 4 L BUN 8 Creatinine 0.80 Estim Creat Clear Calc 73.93 Est GFR (MDRD) Af Amer 102 Est GFR (MDRD) Non-Af 84 BUN/Creatinine Ratio 10.0 Glucose 98 Calcium 9.3 Total Bilirubin 0.40 AST 23 ALT 59 H Alkaline Phosphatase 99 Total Protein 7.2 Albumin 3.6 Globulin 3.6 Albumin/Globulin Ratio 1.0 Lipase 148 Urine Color Yellow Urine Clarity Sl. Cloudy Urine pH 6.0 Ur Specific Eldred 1.010 Urine Protein Negative Urine Glucose (UA) Normal Urine Ketones Negative Urine Occult Blood Negative Urine Nitrite Negative Urine Bilirubin Negative Urine Urobilinogen Normal Ur Leukocyte Esterase Negative Urine RBC 0 SEEN Urine WBC 0 SEEN Ur Squamous Epith Cells 0-5 SEEN Urine Bacteria 0 SEEN Urine Mucus 0 SEEN Radiography Diagnostic Testing: Radiology Impression Abdomen/Pelvis CT 07/11/20 09:44 IMPRESSION: 5.8 cm x 5.5 cm hypodense mass in the left adnexa. IUD is seen within the endometrium. Electronically Signed: Christopher Beauchamp MD at 12:23 EDT , Service support , Discharge Plan Triage Chief Complaint: Abd Pain ED Provider: [facility] Dx/Rx/DC Orders Instructions: ED Ovarian Cyst Prescriptions: No Action spironolactone 25 MG tablet 25 mg PO DAILY RF: 0 ibuprofen 600 MG tablet 600 mg PO Q6H PRN (Reason: Pain) Qty: 60 RF: 1 promethazine 25 MG tablet 25 mg PO Q6H PRN PRN (Reason: Nausea) RF: 0 sumatriptan succinate 50 MG tablet 50 mg PO .X1 PRN PRN (Reason: Migraine Symptoms) Qty: 14 RF: 0 cyclobenzaprine 10 MG tablet 10 mg PO TID PRN (Reason: Muscle Spasm) Qty: 20 RF: 0 doxycycline monohydrate 100 MG capsule 100 mg PO BID Qty: 20 RF: 0 albuterol sulfate 1 INHALER inhaler 1 - 2 puff inhalation Q4H PRN PRN (Reason: Wheezing) Qty: 1 RF: 0 Nucynta 100 mg tablet 100 mg PO DAILY RF: 0 Primary Care Provider: Juan Dasilva Referrals: Juan Dasilva MD [Primary Care Provider] - Disposition Disposition: Home, self care
[2020-07-11] MEDS: Ketorolac 15 MG/ML Vial IV (10:12)
[2020-07-11] MEDS: Ondansetron 4 MG/2 ML Vial IV (10:12)
[2020-07-11 10:19] LABS: Absolute Neutrophil Count 6.7 X10^3/uL (2.0-7.7); Basophil# 0.03 X10^3/uL; Basophil% 0.3 % (0-1); Eosinophil# 0.01 X10^3/uL; Eosinophils% 0.1 % (0-5); Hematocrit 41.6 % (37-47); Hemoglobin 13.5 g/dL (12.0-15.0); Lymphocyte % 22.3 % (19-41); Mean Corp Hgb Conc 32.5 g/dL (32-36); Mean Corpuscular Hgb 30.1 pg (27.0-32.0); Mean Corpuscular Volume 92.7 fL (81-99); Mean Platelet Vol. 9.5 fl (6.2-12.0); Monocyte# 0.54 X10^3/uL; Monocyte% 5.7 % (0-10); NRBC Flagged by Analyzer 0 % (0-5); Neutrophil # 6.68 X10^3/uL (2.7-7.7); Neutrophil % 71.2 % (47-70); Platelet Count 322 K/mm3 (150-450); RBC Distribution Width CV 12.9 % (11.6-14.6); RBC Distribution Width SD 43.6 fl (35.1-43.9); Red Blood Count 4.49 M/mm3 (4.2-5.4); White Blood Count 9.4 K/mm3 (4.4-11.0)
[2020-07-11 10:27] LABS: Bacteria 0 SEEN /hpf (None Seen); Mucous, Urine 0 SEEN /hpf (<or=2+); Red Blood Cells-Urine 0 SEEN /hpf (0-5); White Blood Cells 0 SEEN /hpf (0-5)
[2020-07-11 10:31] LABS: Color, Urine Yellow (Yellow); Glucose, Dipstick Normal (Normal); Ketone-Dipstick Negative (Negative); Leukocyte Esterase-Dipstick Negative /ul (Negative); Nitrite-Dipstick Negative (Negative); Occult Blood-Urine Negative /ul (Negative); Protein-Dipstick Negative (Negative); Urine Bilirubin Dipstick Negative (Negative); Urine Clarity Sl. Cloudy (Clear); Urine Urobilinogen Normal (Normal)
[2020-07-11 10:37] LABS: AST(SGOT) 23 U/L (15-37); Alanine Aminotransfer ALT/SGPT 59 U/L (13-56); Albumin, Serum 3.6 g/dL (3.2-5.0); Alkaline Phosphatase 99 U/L (45-117); Anion Gap 4 (5-15); BUN 8 mg/dL (7-18); Calcium,Total 9.3 mg/dL (8.5-10.1); Chloride 107 mmol/L (98-107); EST Glomerular Filtration Rate 84 mL/min (>60); Est Glom Filt Rate - Afr Amer 102 mL/min (>60); Estimated Creatinine Clearance 73.93 ml/min; Globulin 3.6 g/dL (2.2-4.2); Glucose 98 mg/dL (74-106); Lipase 148 U/L (73-393); Potassium 4.1 mmol/L (3.5-5.1); Protein, Total 7.2 g/dL (6.4-8.2); Sodium Level 140 mmol/L (136-145)
[2020-07-11 10:37] LABS: Squamous Epithelial Cells - UA 0-5 SEEN /hpf (5-10)
[2020-07-11] MEDS: Morphine 4 MG/ML Syringe IV (11:31)
[2020-07-11] MEDS: oxyCODONE 5 MG Tablet PO (14:22)
[2020-07-11 14:25] VITALS: BP 138/78; PULSE 89; RESP 16; O2SAT 98
== END 2020-07-11 14:25 | disposition home or self-care (01) ==
PROVIDERS: Emergency Provider Student in an Organized Health Care Education/Training Program; PCP Family Medicine
DX: N83.202 Unspecified ovarian cyst, left side (principal); E66.9 Obesity, unspecified; J45.909 Unspecified asthma, uncomplicated; Z87.891 Personal history of nicotine dependence; Z79.899 Other long term (current) drug therapy
CPT/HCPCS: 74177; 80053; 81001; 83690; 85025; 96374; 96375; 99284; J7040; Q9967; A4216; J2405

== ENCOUNTER → 2020-08-05 11:54 | Outpatient (CLI) | payer OTHER, SELFPAY ==
[2020-07-11 09:15] VITALS: BMI 43.9
[2020-08-05 13:03] LABS: Amphetamine Urine VISTA NEGATIVE (<1000 ng/mL); Barbiturate Urine VISTA NEGATIVE (< 200 ng/mL); Benzodiazepine Urine VISTA NEGATIVE (< 200 ng/mL); Cocaine Urine VISTA NEGATIVE (< 300 ng/mL); Ecstacy Urine VISTA NEGATIVE (< 500 ng/mL); Methadone Urine VISTA NEGATIVE (< 300 ng/mL); PCP Urine VISTA NEGATIVE (< 25 ng/mL); THC Urine VISTA NEGATIVE (< 50 ng/mL); Vista UDS pH Range 5
== END ==
PROVIDERS: PCP Family Medicine; Referring Provider Anesthesiology Pain Medicine; Visit Provider Anesthesiology Pain Medicine
DX: F11.20 Opioid dependence, uncomplicated (principal)
CPT/HCPCS: 36415; 80307

== ENCOUNTER 2021-01-02 17:24 | Emergency (ER) | payer OTHER, SELFPAY ==
[2021-01-02 17:25] VITALS: BP 134/101; PULSE 114; RESP 16; TEMP 36.6; O2SAT 100; BMI 46.3
--- NOTE | 2021-01-02 17:30 | EX.ED.VIS.HA ---
HPI History of Present Illness Chief Complaint: Headache Detail of Chief Complaint: Headache and constipation Informant: patient Narrative Narrative: Patient presents to the emergency department with multiple complaints. She complains of migraine headache that she has had for months and gets the headaches daily. Patient states that she had Covid in June and it flared up all her joints for which she now takes prednisone. Patient states that Imitrex that she has been taking has not been helping. Headache is in her temples and often diffuse. Currently rates it a 7 out of 10. Patient states headache is typical of her migraines and typically Imitrex helps it. She is scheduled to see a neurologist in a month and a half. She has nausea but now vomiting. Patient has photophobia. Patient was seen at urgent care 3 days ago and given Toradol which did seem to help her pain. Patient also tells me she has not had a bowel movement in 2 days and feels bloated and constipated. She denies any abdominal pain. She has had no fever. She is had no vomiting. She denies any blood in her stool or black tarry stool. She denies any diarrhea. [facility] Medical History (Updated 01/02/21 @ 19:[address] Carlos Michaud, ) Asthma Frequent headaches Lung disease Shoulder pain SOB (shortness of breath) Home Medications spironolactone 25 mg PO DAILY 10/10/18 [History Last Taken 10/16/18] ibuprofen 600 mg PO Q6H PRN #60 tab 10/13/18 [Rx Last Taken 10/16/18] cyclobenzaprine 10 mg PO TID PRN #20 tab 10/16/18 [Rx Last Taken Unknown] promethazine 25 mg PO Q6H PRN PRN 10/16/18 [History Last Taken 10/16/18] sumatriptan succinate 50 mg PO .X1 PRN PRN #14 tab 10/16/18 [Rx Last Taken Unknown] albuterol sulfate 1 - 2 puff INHALATION Q4H PRN PRN #1 inhaler 12/29/18 [Rx Last Taken Unknown] doxycycline monohydrate 100 mg PO BID #20 cap 12/29/18 [Rx Last Taken Unknown] tapentadol [Nucynta] 100 mg PO DAILY 07/11/20 [History Last Taken Unknown] Allergy/AdvReac Type Severity Reaction Status Date / Time hydrocodone [From Vicodin] Allergy Vomiting Verified 01/02/21 17:25 Sulfa (Sulfonamide Allergy Hives Verified 01/02/21 17:25 Antibiotics) Surgical History History of Social History Smoking Status: Former smoker ROS ROS ED Constitutional Constitutional ED: Reports systems reviewed and no addt'l complaints, except as documented; Denies body ache(s), change in weight or chills Eyes Eyes: Denies acute decrease in peripheral vision, change in vision, double vision or loss of vision ENT ENT ED: Reports none; Denies ear pain, lip swelling, loss taste/smell, neck pain, otalgia or sore throat Cardiovascular Cardiovascular: Reports none; Denies abdominal pain, chest pain with activity, leg edema, lightheadedness, palpitations, rapid heart rate or syncope Respiratory/Chest Respiratory/Chest: Reports none; Denies change in mental status, dry cough, dyspnea, hemoptysis, shortness of breath at rest or shortness of breath with exertion Gastrointestinal Gastrointestinal: Reports none, abdominal pain and constipation; Denies change in stool character, diarrhea, hematemesis, hematochezia, melena, rectal bleeding or vomiting Genitourinary Genitourinary ED: Reports none; Denies abdominal discomfort, anuria, dysuria, genital pain or polyuria Musculoskeletal Musculoskeletal: Reports none and arthralgias; Denies back pain, difficulty walking, extremity pain, muscle weakness or myalgias Integumentary Reports none; Denies abscess or rash Neurologic Neurologic: Reports none and headache(s); Denies abnormal gait, confusion, focal weakness, frequent falls, loss of vision, numbness, paresthesias, radicular pain, vertigo or weakness Psychiatric Psychiatric: Reports systems reviewed and no addt'l complaints, except as documented and none; Denies behavioral changes, confusion, difficulty concentrating, hallucinations, suicidal ideation, tactile hallucinations or visual hallucinations Endocrine Endocrinology: Denies none, cold intolerance, excessive sweating, fatigue or heat intolerance Hematologic/Lymphatic Hematologic/Lymphatic: Reports none; Denies anemia, easy bleeding or easy bruising Allergic/Immunologic Allergic/Immunologic ED: Denies as per HPI, none, lip swelling, mouth swelling, throat swelling, tongue swelling or hives EXAM Physical Exam Const Vital Signs: 01/02/21 17:25 Temperature 97.9 F Temperature Source Temporal Pulse Rate 114 H Respiratory Rate 16 Blood Pressure 134/101 H Blood Pressure Mean 112 Pulse Ox 100 Oxygen Delivery Method Room Air Positive well nourished and well developed General Appearance ED: well developed and NAD HEENT Reports TM's clear and moist mucous membranes normocephalic and atraumatic; Negative for trauma or tenderness Tympanic Membrane ED: Yes TM's clear Eyes PERRL and EOMs intact bilaterally General Eye ED: Negative for pale conjunctiva or scleral icterus Neck no lymphadenopathy, supple and no JVD General: Negative for tenderness Chest Wall inspection of chest normal and palpation of chest normal Chest: Negative for tenderness Resp normal respiratory effort and clear to auscultation bilaterally Effort and Inspection: Negative for respiratory distress or pain with movement Auscultation: Negative for rhonchi, wheezes or diminished lung sounds Cardio regular rate, regular rhythm, S1 normal heart sound, S2 normal heart sound and no murmurs Peripheral Pulses: pulses 2+ throughout GI normal to inspection, nondistended, normoactive bowel sounds, soft to palpation, non-tender, non-distended and no masses GI Narrative: Abdomen is soft and nontender on exam. There is no rebound, rigidity, or peritoneal signs. Back/Spine no CVA tenderness and no thoracic nor lumbar tenderness Extremity normal to inspection General Extremety ED: Negative for edema General Extremity: Negative for edema Neuro oriented x3, CN's II-XII intact bilaterally, no sensory deficits noted and gait normal Neuro Narrative: [id number] and heel aguilar testing within normal limits, negative Romberg, negative pronator drift, fundi benign Sensorium / Orientation: awake, alert, oriented to person, oriented to place and oriented to time Motor Exam: strength 5/5 throughout and strength abnormal Psych mental status grossly normal Skin no rashes or lesions noted and no wounds MDM MDM MDM Narrative Medical decision making narrative: On arrival we attempted IV placement unsuccessfully. Patient refused my attempt to place an IV in her neck via external jugular vein. Patient was then ordered Reglan, Benadryl, and Toradol IM. She had some mild relief of her symptoms but does not anything more for pain now. Patient will be discharged home with a prescription for magnesium citrate. She has a appointment with her primary care physician tomorrow morning. Patient does see a neurologist in 1-1/2 months. Patient advised to return if worsening headache, or condition should worsen anyway. Lab Data Attestation: I reviewed the patient's lab results. Discharge Plan Triage Chief Complaint: Headache ED Provider: Carlos Michaud Dx/Rx/DC Orders Clinical Impression: Headache, classical migraine Instructions: ED Constipation (Adult), ED, Migraine (Classical) Prescriptions: No Action spironolactone 25 MG tablet 25 mg PO DAILY RF: 0 ibuprofen 600 MG tablet 600 mg PO Q6H PRN (Reason: Pain) Qty: 60 RF: 1 promethazine 25 MG tablet 25 mg PO Q6H PRN PRN (Reason: Nausea) RF: 0 sumatriptan succinate 50 MG tablet 50 mg PO .X1 PRN PRN (Reason: Migraine Symptoms) Qty: 14 RF: 0 cyclobenzaprine 10 MG tablet 10 mg PO TID PRN (Reason: Muscle Spasm) Qty: 20 RF: 0 doxycycline monohydrate 100 MG capsule 100 mg PO BID Qty: 20 RF: 0 albuterol sulfate 1 INHALER inhaler 1 - 2 puff inhalation Q4H PRN PRN (Reason: Wheezing) Qty: 1 RF: 0 Nucynta 100 mg tablet 100 mg PO DAILY RF: 0 Primary Care Provider: Juan Dasilva Referrals: Juan Dasilva MD [Primary Care Provider] - 1 Day Disposition Disposition: Home, Self Care
[2021-01-02] MEDS: DiphenhydrAMINE 50 MG/ML Syringe 25 MG IV (19:00)
[2021-01-02] MEDS: Metoclopramide 10 MG/2 ML Vial IV (19:00)
[2021-01-02] MEDS: Ketorolac 30 MG/ML Syringe IV (19:00)
--- NOTE | 2021-01-02 19:07 | ED.RN ---
meds given IM instead of IV
[2021-01-02] MEDS: Magnesium Citrate 300 ML PO (19:52)
--- NOTE | 2021-01-02 19:54 | ED.RN ---
pt had multiple IV attempts with multiple RNs
== END 2021-01-02 19:55 | disposition home or self-care (01) ==
PROVIDERS: Emergency Provider Emergency Medicine; PCP Family Medicine
DX: G43.109 Migraine with aura, not intractable, without status migrainosus (principal); K59.00 Constipation, unspecified; Z87.891 Personal history of nicotine dependence
CPT/HCPCS: 96374; 96375; 99282; J7030; A4216

== ENCOUNTER → 2021-01-13 12:56 | Outpatient (CLI) | payer OTHER, SELFPAY ==
--- NOTE | 2021-01-13 13:02 | US_ITS ---
STUDY: ULTRASOUND OF THE FEMALE PELVIS - COMPLETE REASON FOR EXAM: Female, 40 years old. PAIN LMP: 01/01/2021. TECHNIQUE: Transabdominal and Transvaginal TECHNICAL QUALITY: Adequate. COMPARISON: Comparison is made with prior CT scan of the abdomen and pelvis dated 07/11/2020. FINDINGS: The uterus is anteverted and is in a midline position. The uterus measures 8.6 cm x 4.8 cm x 3.7 cm. Normal uterine cervix. The endometrium measures 6 mm in thickness, and is hyperechoic. There is no demonstrated endometrial mass. There is no demonstrated myometrial mass. I.U.D. - The patient does have an I.U.D. The right ovary is visualized. The right ovary measures 4.4 cm x 3.6 cm x 3 cm. A 1.7 cm follicle is seen in the right ovary. There is no visualized right adnexal mass or complex lesion. There is normal arterial and normal venous vascularity. The left ovary is visualized. The left ovary measures 10.1 cm x 7.7 cm x 7.9 cm. There is a 7.8 cm x 7 cm x 6.7 cm cyst in the left ovary. There is no visualized left adnexal mass or complex lesion. There is normal arterial and normal venous vascularity. There is no fluid in the cul-de-sac. The pre void volume of the bladder was 380 ml. US/Pelvic (Non ) IMPRESSION: 7.8 cm x 7 cm x 6.7 cm cyst in the left ovary. IUD is seen within the fundal aspect of the uterus. Electronically Signed: Christopher Beauchamp MD at 13:59 EST , Service support ,
--- NOTE | 2021-01-13 13:37 | US_ITS ---
STUDY: ULTRASOUND OF THE FEMALE PELVIS - COMPLETE REASON FOR EXAM: Female, 40 years old. PAIN LMP: 01/01/2021. TECHNIQUE: Transabdominal and Transvaginal TECHNICAL QUALITY: Adequate. COMPARISON: Comparison is made with prior CT scan of the abdomen and pelvis dated 07/11/2020. FINDINGS: The uterus is anteverted and is in a midline position. The uterus measures 8.6 cm x 4.8 cm x 3.7 cm. Normal uterine cervix. The endometrium measures 6 mm in thickness, and is hyperechoic. There is no demonstrated endometrial mass. There is no demonstrated myometrial mass. I.U.D. - The patient does have an I.U.D. The right ovary is visualized. The right ovary measures 4.4 cm x 3.6 cm x 3 cm. A 1.7 cm follicle is seen in the right ovary. There is no visualized right adnexal mass or complex lesion. There is normal arterial and normal venous vascularity. The left ovary is visualized. The left ovary measures 10.1 cm x 7.7 cm x 7.9 cm. There is a 7.8 cm x 7 cm x 6.7 cm cyst in the left ovary. There is no visualized left adnexal mass or complex lesion. There is normal arterial and normal venous vascularity. There is no fluid in the cul-de-sac. The pre void volume of the bladder was 380 ml. US/Transvaginal Non- IMPRESSION: 7.8 cm x 7 cm x 6.7 cm cyst in the left ovary. IUD is seen within the fundal aspect of the uterus. Electronically Signed: Christopher Beauchamp MD at 13:59 EST , Service support ,
== END ==
PROVIDERS: PCP Family Medicine; Referring Provider Family Medicine; Visit Provider Family Medicine
DX: R19.04 Left lower quadrant abdominal swelling, mass and lump (principal)
CPT/HCPCS: 76830; 76856; 93976

== ENCOUNTER 2021-01-30 12:04 | Day surgery (SDC) | payer OTHER, SELFPAY ==
--- NOTE | 2021-01-28 15:54 | PCM.HP.BLA ---
History and Physical Date of Admission: 01/30/21 HPI: The patient is a 40 year old female presenting for pre-operative visit. She is scheduled for laparoscopic left salpingo-oophorectomy, right salpingectomy, Mirena IUD removal, hysteroscopy D&C with endometrial ablation, for pelvic pain, left ovarian cyst, menorrhagia on 01/30/21. Procedure discussed along with risks, benefits and complications. Other alternatives discussed for management. Consent form signed? Yes. ? ? PAST MEDICAL HISTORY PAST MEDICAL HISTORY Diagnosis Date ? Abnormal glandular Papanicolaou smear of cervix 2006 ? Abn. Pap smear (cervix)-cervical dysplagia ? Alcoholism in remission ([facility]) ? ? sober since 2011 ? Bilateral ovarian cysts ? ? Cyclothymic disorder ? ? Depression ? ? Fibromyalgia ? ? Hip pain, right ? ? Dr. Parks for pain management, possible labral tear ? Interstitial lung disease (HCC) ? ? Marijuana use in remission ? ? since 2011 ? Migraines ? ? Morbid obesity (HCC) ? ? DEVORAH on CPAP ? ? PTSD (post-traumatic stress disorder) ? ? Spontaneous 1999 ? no D&C ? Spontaneous 07/2007 ? no D&C ? Tobacco use ? ? Quit 01/30/19 ? ? PAST SURGICAL HISTORY PAST SURGICAL HISTORY Procedure Laterality Date ? DELIVERY ONLY ? 2009 ? , low transverse ? COLPOSCOPY ([facility])_*[place] ? 2006 ? x 2 ? HYSTEROSCOPY, SURGICAL; WITH SAMPLI ? 10/13/2018 ? hysteroscopy D&C ? LEEP PROCEDURE ([facility])_*[place] ? 2007 ? cervical dysplagia ? PAST SURGICAL HISTORY OF ? 2015 ? 8 cm mass removed from pericarium, benign ? RECONSTRUCT PROX HUMERAL IMPLANT ? ? ? Arthroplasty, shoulder ? ? ? CURRENT MEDICATIONS Current Outpatient Medications Medication Sig Dispense Refill ? predniSONE (DELTASONE) 10 mg tablet Take 1 tablet by mouth once daily. 30 tablet 0 ? rizatriptan (MAXALT) 10 mg tablet Take 1 tablet by mouth as needed for migraine headache (see administration instructions). 12 tablet 2 ? nystatin (MYCOSTATIN) 100,000 unit/mL suspension Take 5 mL by mouth four times daily for 7 days. 1tsp swish in mouth for several minutes, then swallow (or expectorate) 4 times daily until gone. 140 mL 0 ? cholecalciferol (VITAMIN D3) 5,000 unit tab Take by mouth. ? ? ? sennosides (LAXATIVE ORAL) Take by mouth three times daily. ? ? ? docusate sodium (STOOL SOFTENER ORAL) Take by mouth. 3 pills tree times a day ? ? ? ondansetron orally disintegrating (ZOFRAN ODT) 4 mg disintegrating tablet Take 1 tablet by mouth every 8 hours as needed for nausea/vomiting. 20 tablet 1 ? meloxicam (MOBIC) 15 mg tablet Take 1 tablet by mouth once daily. Take with food. 30 tablet 1 ? diclofenac (VOLTAREN) 1 % topical gel Apply 2 g to affected area four times daily. 300 g 5 ? omeprazole (PRILOSEC) 40 mg capsule Take 1 capsule by mouth once daily. 30 capsule 5 ? SUMAtriptan (IMITREX) 50 mg tablet Take 1 tablet by mouth as needed for Migraine Headache (see administration instructions). 12 tablet 2 ? promethazine (PHENERGAN) 25 mg tablet Take 1 tablet by mouth three times daily as needed for nausea/vomiting. Takes with Nucynta 90 tablet 2 ? pseudoephedrine (SUDOGEST) 60 mg tablet Take 1 tablet by mouth three times daily as needed. 90 tablet 5 ? baclofen (LIORESAL) 20 mg tablet Take 1 tablet by mouth three times daily as needed (muscle spasms). 90 tablet 5 ? fluticasone-vilanterol (BREO ELLIPTA) 100-25 mcg/dose inhaler Inhale 1 Inhalation as instructed once daily. 60 Each 5 ? cetirizine (ZYRTEC) 10 mg tablet Take 1 tablet by mouth twice daily. 60 tablet 5 ? benzonatate (TESSALON PERLE) 100 mg capsule Take 1 capsule by mouth three times daily as needed. 50 capsule 0 ? ProAir RespiClick 90 mcg/actuation breath activated (albuterol sulfate) Inhale 1-2 Puffs as instructed four times daily as needed. 1 Each 5 ? Albuterol Sulfate 0.63 mg/3 mL nebulizer solution Use 1 Ampule via nebulizer every 6 hours as needed. 1 Package 3 ? azelastine (ASTELIN) 0.1% nasal spray instill 1 spray into each nostril twice a day 30 mL 3 ? meloxicam (MOBIC) 15 mg tablet Take 1 tablet by mouth once daily. 30 tablet 2 ? ALBUTEROL INHALATION Inhale as instructed. ? ? ? anesthesia tray (BRACHIAL PLEXUS TRAY MISC) ? NUCYNTA 100 mg tab Take 100 mg by mouth three times daily. ? ? ? CPAP Initiate CPAP @ 11 cm of water with humidification. Mask (per patient preference) optional chin strap (if indicated) , filters, tubing, humidifier and lifetime supplies. 1 Device 0 ? levonorgestrel (MIRENA) 20 mcg/24 hours (5 yrs) 52 mg IUD 1 Each by INTRAUTERINE route as directed. ? ? ? No current facility-administered medications for this visit. ? ? ALLERGIES: Kenalog [Triamcinolone], Sulfa (Sulfonamide Antibiotics), and Vicodin [Hydrocodone-Acetaminophen] ? PERSONAL HISTORY: SOCIAL HISTORY Social History ? Tobacco Use ? Smoking status: Former Smoker ? ? Packs/day: 0.25 ? ? Years: 24.00 ? ? Pack years: 6.00 ? ? Types: Cigarettes ? ? Quit date: 09/16/2019 ? ? Years since quittin.3 ? Smokeless tobacco: Never Used ? Tobacco comment: Quit 01/30/19 Vaping Use ? Vaping Use: Former Substance Use Topics ? Alcohol use: No ? Drug use: No ? FAMILY HISTORY: FAMILY HISTORY FAMILY HISTORY Problem Relation Age of Onset ? Hyperlipidemia Mother ? ? Hypertension Mother ? ? Obesity Father ? ? Hyperlipidemia Father ? ? Hypertension Father ? ? Macular Degen Father ? ? Glaucoma Father ? ? Cancer Maternal Grandfather ? ? Lung-Smoker ? Cancer Paternal Grandfather ? ? Heart Paternal Grandfather ? ? ? REVIEW OF SYMPTOMS: GENERAL: denies fevers or chills ENDOCRINOLOGY: has not been on steroids Cardiology : denies palpitations or chest pain Respiratory: denies SOB or cough Hematology: denies history of prolonged bleeding or easy bruising or VTE Allergy: Denies history of personal or family history of allergy to anesthesia ? PHYSICAL EXAMINATION: ? VITALS: Last menstrual period 07/07/2020. ? GENERAL: The patient is well nourished, well hydrated in no acute distress. , The patient is oriented to time, place, and person. NECK: Supple. No lynphadenopathy, normal thyroid, no thyromegaly. LUNGS: Clear to auscultation bilaterally. no wheezes, rhonchi or rales HEART: Regular rate and rhythm, Normal heart sounds and No murmurs or gallops ? IMPRESSION: Pelvic pain, complex left ovarian cyst, sterilization request, abnormal uterine bleeding. ? PLAN: The risks/benefits/alternatives and personal involved for the planned laparoscopic left salpingo-oophorectomy, right salpingectomy, IUD removal, hysteroscopy D&C with endometrial ablation were reviewed with the patient. Her questions were answered to her satisfaction and she desires to proceed. Consent was signed. I reviewed with her postop instructions and expectations. ? ? I have reviewed and updated past medical and surgical history, medications and allergies This H&P was completed in my office on 01/28/21. Assessment & Plan Assessment/Plan (1) Left ovarian cyst: (2) Pelvic pain: (3) Abnormal uterine bleeding (AUB): (4) Encounter for IUD removal: (5) Encounter for female sterilization procedure:
[2021-01-30] VITALS (9 sets, daily range): BP systolic 123–142; BP diastolic 69–97; PULSE 87–107; RESP 16–20; TEMP 36.4–37.1; O2SAT 96–100; BMI 47.0
--- NOTE | 2021-01-30 | FALS_PTH ---
PATIENT: SANGEETA TEJADA [place] [facility] [facility] [place][id number] AGE/SX: 40/F ROOM: RE01/30/[address]: Dr. Yasmeen Phillips MD : 1980 BED: DIS: 01/30/2021 SPEC #: [id number] RECD: 01/31/21 10:22 STATUS: TEAGAN REDayo #: [id number] BARTOLO: 01/30/21 00:[address]: Yasmeen Phillips DEPT: SURGICAL PATHOLOGY RECD BY: Taj Pablo ENTERED: 01/31/21 10:23 SP TYPE: FALL TUBES OTHR DR: Dr. Juan Dasilva MD Tissues: A - Endometrium, NOS B - Fallopian tube Procedures: Surgery Specimen Level II Surgery Specimen Level IV HEADER OPERATION: Bilateral salpingectomy, laparoscopic left oophorectomy PRE-OP DIAGNOSIS: Left ovarian cyst, pelvic pain, abnormal uterine bleeding, IUD removal, sterilization TISSUE SUBMITTED: A ? Endometrial curettings, B ? Bilateral fallopian tubes and left ovarian cyst MICROSCOPIC DIAGNOSIS A. Endometrium, curettings: Weakly proliferative endometrium. Stromal hyperplasia consistent with exogenous hormonal change with extensive breakdown. Focal stromal breakdown and chronic endometritis, mild. Fibrinopurulent material. B. Bilateral fallopian tubes and left ovarian cyst: Left ovary with endometrioma and follicular cyst. Left fallopian tube - Tubo-ovarian adhesion, Right fallopian tube ? no pathologic change. See comment. AM:giancarlo 02/03/2021 COMMENT B. Immunohistochemistry ([id number]) supports the above diagnosis. Please correlate with cytology specimen [id number]. MICROSCOPIC DESCRIPTION Slides are reviewed. GROSS DESCRIPTION A - Received in fixative is one container labeled with the patient's name and designated endometrial curettings. The specimen consists of multiple irregular fragments of red-mccann soft tissue that in aggregate measure 2 x 1 x 0.1 cm. The specimen is totally submitted in one cassette. B - Received in fixative is one container labeled with the patient's name and designated bilateral fallopian tubes and ovaries. The specimen consists of one ovary with adjacent fallopian tube. The ovary is light mccann-sharma in color, cystic and open along one aspect. The ovary measures 6 x 5 x 2 cm. Adjacent to the ovary is a fallopian tube measuring 6 cm in length and 0.8 cm in average diameter. The fallopian tube is adhesed to this cystic ovary. The external surface is inked and serially sectioned. The thickness of the ovary ranges from 0.2 to 0.5 cm. No distinct mass lesions are identified. Food Cart Attendant sections from this cystic ovary and fallopian tube are submitted in cassettes 1-4. The other fallopian tube measures 4.5 cm in length and 0.5 cm in average diameter. A normal fimbriated end is visible. Food Cart Attendant sections from this fallopian tube are submitted in cassette 5. / AM:giancarlo 01/31/21 TC:1 CPT: 80494 x2
--- NOTE | 2021-01-30 | IMM_PTH ---
PATIENT: SANGEETA TEJADA LOC: [facility] U#:[id number] AGE/SX: 40/F ROOM: RE01/30/[address]: Dr. Yasmeen Phillips MD : 1980 BED: DIS: 01/30/2021 SPEC #: [id number] RECD: 02/03/21 14:46 STATUS: TEAGAN REQ #: [id number] BARTOLO: 01/30/21 00:[address]: Yasmeen Phillips DEPT: IMMUNOHISTOCHEMISTRY RECD BY: Emy Simmons ENTERED: 02/03/21 14:48 SP TYPE: IMMUNO OTHR DR: Dr. Juan Dasilva MD Tissues: Pelvis, NOS Procedures: Carmine Ret (add) CK5-6 (add) Vimentin (add) Pankeratin (initial) PHYSICIAN & INSTITUTION [place] [address] SPECIMEN INFORMATION: Tissue Source: Pelvic washings Clinical Info: Left ovarian cyst, pelvic pain, abnormal uterine bleeding Specimen Number: [id number] CPT code: 81817, 23615 x3 METHODOLOGY: Deparaffinized sections of prefer/formalin-fixed tissue or PAP/DQ stained slides are incubated with monoclonal/polyclonal antibodies/oligonucleotide probes. Localization is made via biotin free immunoperoxidase method. Appropriate controls are performed and reacted as expected. Results on target cell population are indicated in the following table: RESULTS: ANTIBODY / CLONE RESULT AE1-3 (AE1/AE3/PCK26) positive CK5-6 (D5 & 1684) positive CALRET (polyclonal) positive Vimentin (V9) positive These tests were developed and their performance characteristics determined by [facility]. They may not have been cleared or approved by the U.S. Food and Drug Administration. The FDA has determined that such clearance or approval is not necessary. The above immunohistochemical/dualISH markers are ordered and reviewed by the Pathologist. INTERPRETATION: Pelvic washings (cell block): Consistent with benign mesothelial cells. AM:giancarlo 02/04/2021
--- NOTE | 2021-01-30 | IMM_PTH ---
PATIENT: SANGEETA TEJADA LOC: [facility] – [place] U#:[id number] AGE/SX: 40/F ROOM: RE01/30/[address]: Dr. Yasmeen Phillips MD : 1980 BED: DIS: 01/30/2021 SPEC #: [id number] RECD: 02/03/21 14:52 STATUS: TEAGAN REQ #: [id number] BARTOLO: 01/30/21 00:[address]: Yasmeen Phillips DEPT: IMMUNOHISTOCHEMISTRY RECD BY: Emy Simmons ENTERED: 02/03/21 14:53 SP TYPE: IMMUNO OTHR DR: Dr. Juan Dasilva MD Tissues: B - Fallopian tube Procedures: CEA (add) Pankeratin (add) Vimentin (initial) PHYSICIAN & INSTITUTION [place] [address] SPECIMEN INFORMATION: Tissue Source: B ? Bilateral fallopian tubes and left ovarian cyst Clinical Info: Left ovarian cyst, pelvic pain, abnormal uterine bleeding Specimen Number: [id number] CPT code: 95399, 88073 x2 METHODOLOGY: Deparaffinized sections of prefer/formalin-fixed tissue or PAP/DQ stained slides are incubated with monoclonal/polyclonal antibodies/oligonucleotide probes. Localization is made via biotin free immunoperoxidase method. Appropriate controls are performed and reacted as expected. Results on target cell population are indicated in the following table: RESULTS: ANTIBODY / CLONE RESULT Block B Vimentin (V9) positive CEA (11-7/TF-3HB-1) negative AE1-3 (AE1/AE3/PCK26) negative These tests were developed and their performance characteristics determined by [facility]. They may not have been cleared or approved by the U.S. Food and Drug Administration. The FDA has determined that such clearance or approval is not necessary. The above immunohistochemical/dualISH markers are ordered and reviewed by the Pathologist. INTERPRETATION: B. Bilateral fallopian tubes and left ovarian cyst: Consistent with endometrioma. AM:giancarlo 02/04/2021
[2021-01-30] MEDS: Gabapentin 600 MG Tablet PO (07:00)
[2021-01-30] MEDS: Celecoxib 200 MG Capsule 400 MG PO (07:00)
[2021-01-30 12:43] LABS: Internal QC Validated? YES +Cl - CLEAR BKGD; Pregnancy, Urine Negative Negative
[2021-01-30] MEDS: Lactated Ringers 1,000 ML 15 ML IV ×2 (12:50→15:31)
--- NOTE | 2021-01-30 13:30 | FLU_PTH ---
PATIENT: SANGEETA TEJADA LOC: [facility] – [place] U#:[id number] AGE/SX: 40/F ROOM: RE01/30/[address]: Dr. Yasmeen Phillips MD : 1980 BED: DIS: 01/30/2021 SPEC #: [id number] RECD: 01/31/21 08:30 STATUS: TEAGAN REDayo #: [id number] BARTOLO: 01/30/21 13:[address]: Yasmeen Phillips DEPT: CYTOLOGY RECD BY: Katya Pastor ENTERED: 01/31/21 09:38 SP TYPE: Fluid OTHR DR: Dr. Juan Dasilva MD Tissues: Pelvis, NOS Procedures: Special Stain Group II Surgery Specimen Level IV Cytospin Fluid HEADER OPERATION: Bilateral salpingectomy, laparoscopic left oophorectomy PRE-OP DIAGNOSIS: Left ovarian cyst, pelvic pain, abnormal uterine bleeding, IUD removal, sterilization TISSUE SUBMITTED: Pelvic washings DIAGNOSIS CYTOLOGY Pelvic washings (cytospin and cell block): Negative for malignant cells. See comment. AM:giancarlo 02/03/2021 COMMENT Immunohistochemistry ([id number]) supports the above diagnosis. Please correlate with surgical specimen [id number]. CYTOLOGY STUDY Slides are reviewed. CYTOLOGY GROSS Received is 30 ml of red turbid fluid labeled with the patient's name and and designated per the requisition as pelvic washings. Submitted for cytology preparation including cell block. / giancarlo 01/31/2021 TC:5 CPT: 85549, 22368
--- NOTE | 2021-01-30 14:22 | PCM.DC ---
Discharge Instructions Diet Discharge Diet: No restrictions Activity May resume sexual activity in: 1 week Dressing / Incision Call your doctor if your incision/area has: Sudden Increased Bleeding and Foul Smelling Discharge Call your doctor if you observe: Fever of 101 or Higher Cleanse incision/area with: Soap & Water (Your incisions have skin glue and it can get wet. Leave on until it falls off) Follow Up Care Please Follow Up With: Yasmeen Phillips MD When: In my office or virtual visit in 1-2 weeks or as needed Test Results: Test results from this visit will be discussed in further detail at your follow-up appointment, if applicable. Discharge Plan Admission Primary Reason for Your Visit: Laparopscopic=ovarian cystectomy, removal of tubes, endometrial ablation Attending Provider: Yasmeen Phillips Primary Care Provider: Juan Dasilva Discharge Orders/Prescriptions Prescriptions: New oxycodone 5 MG tablet 5 - 10 mg PO Q8H PRN (Reason: severe pain) 5 Days Qty: 20 RF: 0 ibuprofen [ibuprofen] 600 MG tablet 600 mg PO Q6H PRN (Reason: Pain) 3 Days Qty: 12 RF: 1 Continued promethazine 25 MG tablet 25 mg PO Q6H PRN PRN (Reason: Nausea) RF: 0 Nucynta 100 mg tablet 100 mg PO TID RF: 0 prednisone 10 mg tablet 10 mg PO DAILY RF: 0 clindamycin HCl 300 mg capsule 300 mg PO TID RF: 0 rizatriptan 10 mg tablet 10 mg PO PRN PRN (Reason: MIGRAINES) RF: 0 omeprazole 40 mg capsule,delayed release(DR/EC) 40 mg PO DAILY RF: 0 baclofen 20 mg tablet 20 mg PO TID RF: 0 docusate sodium [Stool Softener] 100 mg Capsule 300 mg PO TID RF: 0 Laxative Pills 25 mg Tablet 75 mg PO TID RF: 0 Breo Ellipta 100-25 mcg/dose blister with device 1 inh INHALATION DAILY RF: 0 Referrals / Follow Up: Juan Dasilva MD [Primary Care Provider] - Disposition Disposition (needs filled in before D/C Order can be placed): Home, Self Care
--- NOTE | 2021-01-30 16:39 | OP.PCM_ITS ---
Problems Associated Problem List Diagnoses (1) Left ovarian cyst: (2) Pelvic pain: (3) Abnormal uterine bleeding (AUB): (4) Encounter for IUD removal: (5) Encounter for female sterilization procedure: (6) Endometriosis of left ovary: Report of Operation Date of Procedure: 01/30/21 Pre-Operative Diagnosis: pelvic pain, left ovarian cyst, sterilization request, abnormal uterine bleedign Post-Operative Diagnosis: same + endometriosis of left ovary Surgery/Procedure Performed:: Laparoscocpic left ovarian cystectomy, bilateral salpingectomy, Hysterosccopy D&C with Mirena IUD removal, Brigitte endometrial ablation and cystoscopy Surgeon: Dayami Phillips coffee maker: Kira Garg coffee maker: Clover Maria Type of Anesthesia: General Anesthesiologist: Nate Joy Special Medications: lasix 5 mg Specimen's removed: bilateral fallopian tubes, partial left ovary with cyst and endometrial curettings Drains: none Estimated Blood Loss (mL): 30 Fluids Replaced: 1700 Description of Procedure: The patient was taken to the OR where she was prepped and draped in dorsal lithotomy position. The weighted speculum was placed in the vagina and the anterior lip of the cervix was grasped with a single-tooth tenaculum. The Mirena IUD was grasped and removed intact. The cervix was dilated serially with Hegar dilators. The 5mm hysteroscope was placed into the uterine cavity and the above findings were noted. Bilateral tubal ostia were identified. The uterus sounded to 8cm and the cervical length was 4 cm. The endometrial cavity length was 4cm. The hysteroscope was removed. A gentle sharp curettage was done of the uterine cavity. The specimen was handed off and sent to pathology. The Brigitte device was set to 4cm. The instrument was then seated into the endometrial cavity and the indicator was in the green. The cervical seal balloon was inflated and the uterine integrity test was passed. The ablation procedure was initiated and completed without interruption. During the ablation procedure gentle traction was held on the tenaculum and the Brigitte device was held up against the uterine fundus. When the ablation procedure was completed the Brigitte was removed. The tenaculum was removed and the tenaculum site was noted to be hemostatic. The TimeLynes uterine manipulator was then placed for the laparoscopy. Hysteroscopic ins: 150cc normal saline Hysteroscopic outs:100cc Findings: Endometrial cavity: Normal, no fibroids or polyps noted Cervix: Normal Vagina: Normal Peritoneal cavity: Normal uterus, normal right ovary and tube, left tube is normal but left ovary is enlarged, smooth, but somewhat adherent to the left pelvic sidewall. It was also adhered to the broad ligament on the left side but is unable to determine until after the cyst was ruptured. Otherwise unremarkable peritoneal cavity Attention was turned to the abdomen. All port sites were infiltrated with 0.5% Marcaine before skin incisions were made. A 5 mm intraumbilical incision was made. The anterior abdominal wall was tented up with 2 towel clamps while a 5 mm blade less trocar and sleeve were with the Visiport under visualization. Intraperitoneal placement was confirmed with the laparoscope. The pneumoperitoneum was created and the underlying abdominal contents were intact. The patient was placed in Trendelenburg. Right and left lower quadrant ports were placed under direct visualization lateral to the inferior epigastric vessels. The bowel was swept away and the above findings were noted. It was determined that we needed another instrument to help manipulate the bowel and redundant tissue. A left upper quadrant port was placed under direct visualization without difficulty. Pelvic washings were then performed. It took some manipulation to be able to isolate the infundibulopelvic ligament and care was taken to try to see the ureter on the left side. It was visualized and seen peristalsing. The infundibulopelvic ligament was then clamped, sealed and transected with the LigaSure device. The utero-ovarian ligament was clamped, sealed and transected with LigaSure device. At this point the cyst was ruptured and endometriotic fluid was removed. Once the cyst was deflated I could see how much it was adhered to the left pelvic sidewall and broad ligament. Decision was made not to remove it from the broad ligament. Incision was then made to clamp, seal and transect across the cyst to remove most of the ovary but a remnant was left adhered to the uterus and broad ligament. The right tube was then removed with the LigaSure device. The antimesenteric portion was clamped, sealed and transected and it was then transected from the cornual insertion of the uterus. The site was hemostatic. However the ovarian cyst was somewhat oozy. Some fibrillar was placed over the the remaining ovarian wall and the remaining ovary was folded over it. Some Meenu was then placed over all the pedicles and hemostasis was noted. The left upper quadrant port was then extended and a 10 mm Endo Catch bag was placed into the peritoneal cavity and the ovary was placed in the bag and brought out through the incision. The fascia was then closed with interrupted 0 Vicryl [id number] sutures in the left upper quadrant port site. The remainder the ports were removed. Care was taken to ensure that the entire pneumoperitoneum had been released. The skin was then closed by the [employer] with me present in the operating room. I performed the remainder the procedure with assistance. The [employer] and Dr. Maria provided tissue manipulation and retraction. This procedure was made more difficult and took a prolonged amount of time from a normal left nephrectomy because of the adhesions to the pelvic sidewall and broad ligament and because of the patient's habitus. The skin incisions were closed with Monocryl suture in a subcuticular fashion and skin glue. The vaginal instruments were removed and the vaginal sweep was completed by me. The procedure was performed by me with assistance other than as dictated above. All sponge and needle counts were correct and the patient was taken to the recovery room in stable condition. Grafts/Implants Used: none Procedure Start Time: 14:31 Procedure Stop Time: 16:49 Complications none Admit VTE Documentation VTE Present on Admission: No VTE Mechan Device Prophylaxis: SCD's VTE Pharm Prophylaxis ordered?: No Reason prophylaxis not ordered:: Procedure Not Indicated
[2021-01-30] MEDS: Bupivacaine Mpf 0.5% 30 ML VIAL (16:40)
[2021-01-30] MEDS: Lactated Ringers 1,000 ML 75 ML IV (17:48)
[2021-01-30] MEDS: oxyCODONE 5 MG Tablet PO (18:26)
[2021-01-30 18:34] LABS: Hematocrit 38.9 % (37-47); Hemoglobin 12.6 g/dL (12.0-15.0); Mean Corp Hgb Conc 32.4 g/dL (32-36); Mean Corpuscular Hgb 29.6 pg (27.0-32.0); Mean Corpuscular Volume 91.5 fL (81-99); Mean Platelet Vol. 9.3 fl (6.2-12.0); Platelet Count 358 K/mm3 (150-450); RBC Distribution Width CV 13.2 % (11.6-14.6); RBC Distribution Width SD 43.8 fl (35.1-43.9); Red Blood Count 4.25 M/mm3 (4.2-5.4); White Blood Count 18.1 K/mm3 (4.4-11.0)
== END 2021-01-30 19:23 | disposition home or self-care (01) ==
LOC: SDC 12:06 → AC 12:07
PROVIDERS: PCP Family Medicine; Referring Provider Obstetrics & Gynecology; Visit Provider Obstetrics & Gynecology
PROC: (CPT 58301; principal; 2021-01-30 13:15)
PROC: 0U5B8ZZ Destruction of Endometrium, Via Natural or Artificial Opening Endoscopic (ICD-10-PCS; CPT 58558; 2021-01-30 13:15)
DX: Z30.2 Encounter for sterilization (principal); N83.202 Unspecified ovarian cyst, left side; N80.1 Endometriosis of ovary; Z30.432 Encounter for removal of intrauterine contraceptive device; R10.2 Pelvic and perineal pain; N93.9 Abnormal uterine and vaginal bleeding, unspecified; F10.21 Alcohol dependence, in remission; M79.7 Fibromyalgia; E66.01 Morbid (severe) obesity due to excess calories; G47.33 Obstructive sleep apnea (adult) (pediatric); Z87.891 Personal history of nicotine dependence; Z79.899 Other long term (current) drug therapy; J45.909 Unspecified asthma, uncomplicated; K21.9 Gastro-esophageal reflux disease without esophagitis
CPT/HCPCS: 00840; 58301; 58563; 58661; 58662; 81025; 85027; 88108; 88302; 88305; 88313; 88341; 88342; J7120; J1940; J2405

== ENCOUNTER 2021-02-06 18:06 | Emergency (ER) | payer OTHER, SELFPAY ==
[2021-02-06 18:09] VITALS: BP 136/81; PULSE 123; RESP 16; TEMP 37.2; O2SAT 99; BMI 44.9
--- NOTE | 2021-02-06 18:44 | EKG12_ITS ---
Test Reason : DYSRHYTHMIA Blood Pressure : / mmHG Vent. Rate : 114 BPM Atrial Rate : 114 BPM P-R Int : 134 ms QRS Dur : 070 ms QT Int : 302 ms P-R-T Axes : 040 011 031 degrees QTc Int : 416 ms Sinus tachycardia Otherwise normal ECG Confirmed by LENY WOO, BASIL ([id number]), online editor ANEUDY FRY ([id number]) on 02/11/2021 9:33:15 AM Referred By: BB Confirmed By:BASIL MICHELE MD
--- NOTE | 2021-02-06 18:45 | EX.ED.DYSGE1 ---
HPI History of Present Illness Chief Complaint: Other, Pain/Inj Informant: patient Onset/Context/Timing Onset: Days (5) Context: Gradual Onset Timing: Continuous and Waxes and wanes Quality: fever/chills Current Severity: Mild Maximum Severity: Severe Worsened by: nothing Narrative Narrative: Patient had laparoscopic left ovarian surgery for painful cysts 1 week ago. 1-2 days after surgery, on Wednesday last week (today being ), she states she developed fevers (patient states she measured up to 106), chills, myalgias, fatigue/malaise, she was having postoperative abdominal discomfort that was not severe that has gradually improved, she called the OB on-call for her OB Dr. Yasmeen Phillips, she was advised to go to the ER to get evaluated but she states she decided not to. She states since then, throughout the week she has been having low-grade fevers in the 99 range. She got to the point where she was having no abdominal discomfort for a couple days, but then tonight it came back 6/10 left upper quadrant area. She was seen in the office by one of the on-call ship's pilot earlier today and had a pelvic exam in the office it was fairly benign, but she was advised to come to the emergency department when she developed more abdominal discomfort out of concern for possible abscess, pulmonary embolus according to the patient, and other possibilities. She denies any shortness of breath or chest discomfort or near syncope/syncope. She denies any leg pain or swelling or history of DVT/PE. She states urinalysis was done at the [facility] office and was negative. She was on prednisone near the time of surgery because of recurrent migraines, states her white blood count was 18 then, today it was done and was 22 which gerard concern as well but she has been on an increased level of prednisone because of inflammation according to the patient. [facility] Medical History Asthma Constipation CPAP (continuous positive airway pressure) dependence Encounter for IUD removal Former smoker Frequent headaches Gastric reflux History of COVID-19 History of steroid therapy Hx of LEEP (loop electrosurgical excision procedure) of cervix complicating Lung disease Migraine headache Shoulder pain Sleep apnea SOB (shortness of breath) Wears glasses Home Medications promethazine 25 mg PO Q6H PRN PRN 10/16/18 [History Last Taken 01/30/21] Nucynta 100 mg PO TID 07/11/20 [History Last Taken Unknown] Breo Ellipta 1 inh INHALATION DAILY 01/29/21 [History Last Taken Unknown] Laxative Pills 75 mg PO TID 01/29/21 [History Last Taken Unknown] baclofen 20 mg PO TID 01/29/21 [History Last Taken 01/30/21] clindamycin HCl 300 mg PO TID 01/29/21 [History Last Taken Unknown] docusate sodium [Stool Softener] 300 mg PO TID 01/29/21 [History Last Taken Unknown] omeprazole 40 mg PO DAILY 01/29/21 [History Last Taken Unknown] prednisone 10 mg PO DAILY 01/29/21 [History Last Taken 01/30/21] rizatriptan 10 mg PO PRN PRN 01/29/21 [History Last Taken Unknown] ibuprofen 600 mg PO Q6H PRN 3 Days #12 tablet 01/30/21 [Rx Last Taken Unknown] oxycodone 5 - 10 mg PO Q8H PRN 5 Days #20 tablet 01/30/21 [Rx Last Taken Unknown] Allergy/AdvReac Type Severity Reaction Status Date / Time hydrocodone [From Vicodin] Allergy Vomiting Verified 02/06/21 18:12 Sulfa (Sulfonamide Allergy Hives Verified 02/06/21 18:12 Antibiotics) triamcinolone [From Kenalog] Allergy Other Verified 02/06/21 18:12 Surgical History H/O bilateral salpingectomy History of bronchoscopy History of Hx of heart surgery Hx of shoulder surgery Social History Smoking Status: Former smoker ROS ROS ED Constitutional Constitutional ED: Reports chills, fever(s) and malaise Eyes Eyes: Denies change in vision or diplopia ENT ENT ED: Denies rhinorrhea or sore throat Cardiovascular Cardiovascular: Reports other Details: tachycardia when I checked my HR ; Denies chest pain, irregular heart rhythm, orthopnea, palpitations or pedal edema Respiratory/Chest Respiratory/Chest: Denies cough, dyspnea or orthopnea Gastrointestinal Gastrointestinal: Reports as per HPI and abdominal pain; Denies diarrhea, nausea or vomiting Genitourinary Genitourinary ED: Denies dysuria or hematuria Musculoskeletal Musculoskeletal: Denies back pain or neck pain Integumentary Denies abscess or rash Neurologic Neurologic: Denies headache(s), paresthesias or weakness Psychiatric Psychiatric: Denies anxiety or suicidal thoughts EXAM Physical Exam Const Vital Signs: 02/06/21 18:09 02/06/21 18:30 02/06/21 19:15 Temperature 98.9 F Temperature Source Temporal Pulse Rate 123 H 108 H Respiratory Rate 16 Respiratory Effort Normal Non-Labored Respiratory Pattern Normal Blood Pressure 136/81 H 115/69 Blood Pressure Mean 99 84 Pulse Ox 99 Oxygen Delivery Method Room Air Room Air 02/06/21 19:53 02/06/21 21:06 02/06/21 22:08 Temperature 98.7 F 98.7 F Temperature Source Temporal Temporal Pulse Rate 100 103 H 88 Respiratory Rate 18 16 18 Respiratory Effort Respiratory Pattern Blood Pressure 117/79 115/83 H 109/73 Blood Pressure Mean 91 93 85 Pulse Ox 97 95 98 Oxygen Delivery Method Room Air Room Air Room Air Positive well nourished and well developed General Appearance ED: well developed and NAD Nutritional Appearance: morbidly obese HEENT Reports moist mucous membranes normocephalic and atraumatic Eyes PERRL and EOMs intact bilaterally Neck full ROM and supple Resp normal respiratory effort and clear to auscultation bilaterally Cardio regular rate, regular rhythm and no murmurs Rate: tachycardic GI soft to palpation and non-distended GI Narrative: Mild tenderness without guarding or rebound tenderness left upper quadrant. Exam somewhat limited due to obesity. Multiple laparoscopic surgical incisions with skin glue over them are benign appearing without tenderness, dehiscence, cellulitis, or discharge. Auscultation: normoactive bowel sounds Palpation: soft Back/Spine no CVA tenderness General Back: other FROM Extremity normal to inspection General Extremety ED: Negative for edema, pulses abnormal or tenderness General Extremity: Negative for edema or pulses abnormal Neuro oriented x3, CN's II-XII intact bilaterally and no sensory deficits noted Sensorium / Orientation: awake and alert Motor Exam: strength 5/5 throughout Skin no rashes or lesions noted and no wounds MDM MDM MDM Narrative Medical decision making narrative: Septic work-up obtained, does confirm a leukocytosis of about 22, her D-dimer was nonspecifically elevated even when corrected for age, and patient states that her ship's pilot wanted her to have a CT of the abdomen and pelvis. Clinically my suspicion for an intra-abdominal abscess is very low since she is a very benign abdominal exam specially in the lower abdomen where she is nontender. However given her elevated D-dimer, she will undergo CT angiography of the chest in order to rule out pulmonary embolus as opposed to atelectasis as etiology for these fevers and dyspnea, and in addition she will have CT of the abdomen/pelvis done with IV contrast so she has 1 bolus for both studies. I ordered a Covid test as well to be thorough given her fevers during the pandemic, however she refused it. Your chest x-ray shows nothing specific to account for the leukocytosis, which the steroids may be contributing to as well. As below, CT of the abdomen and pelvis shows no acute postoperative complication such as an abscess. These appear to be postoperative abnormalities that she can follow-up for. Simultaneously was performed CT angiography of the chest, shows no pulmonary embolus, there is some evidence of atelectasis in the lingular lobe, and I reassured the patient and provided her an incentive spirometer for discharge with instructions for use 10 times every hour while awake, as atelectasis could simply be the cause of all of this, it is the most common cause of fevers in the first week postoperatively. Blood cultures and urine cultures were sent, hopefully the leukocytosis is mostly due to the steroids. Urinalysis does not appear to be infected. After IV fluids, her tachycardia resolved, now her heart rate is in the 80s and she feels better. Discharged home stable condition. Lab Data Attestation: I reviewed the patient's lab results. Labs: Laboratory Results - last 24 hr 02/06/21 02/06/21 02/06/21 19:00 19:00 19:10 WBC 21.8 H RBC 4.42 Hgb 12.9 Hct 39.7 MCV 89.8 MCH 29.2 MCHC 32.5 RDW Std Deviation 42.9 RDW Coeff of Zachary 13.1 Plt Count 441 MPV 9.6 Immature Gran % (Auto) DEVELOPMENT OFFICER Neut % (Auto) DEVELOPMENT OFFICER Lymph % (Auto) DEVELOPMENT OFFICER [place] % (Auto) DEVELOPMENT OFFICER Eos % (Auto) DEVELOPMENT OFFICER Baso % (Auto) DEVELOPMENT OFFICER Absolute Neuts (auto) 16.1 H Absolute Lymphs (auto) 3.92 Total Counted 100 Neutrophils % (Manual) 73 H Band Neutrophils % 1 Lymphocytes % (Manual) 18 L Monocytes % (Manual) 8 Nucleated RBC % DEVELOPMENT OFFICER Diff Path Review May foll D-Dimer Quant (PE/DVT) 0.75 H* Sodium 138 Potassium 4.9 Chloride 106 Carbon Dioxide 25.0 Anion Gap 7 BUN 13 Creatinine 0.76 Estim Creat Clear Calc 77.05 Est GFR (MDRD) Af Amer 108 Est GFR (MDRD) Non-Af 89 BUN/Creatinine Ratio 17.1 Glucose 156 H Lactic Acid Calcium 9.6 Total Bilirubin 0.10 L AST 53 H ALT 118 H Alkaline Phosphatase 246 H Troponin I High Sens 3 Total Protein 7.9 Albumin 3.0 L Globulin 4.9 H Albumin/Globulin Ratio 0.6 L Urine Color Urine Clarity Urine pH Ur Specific [place] Urine Protein Urine Glucose (UA) Urine Ketones Urine Occult Blood Urine Nitrite Urine Bilirubin Urine Urobilinogen Ur Leukocyte Esterase Urine RBC Urine WBC Ur Squamous Epith Cells Urine Bacteria Urine Mucus 02/06/21 02/06/21 19:10 20:30 WBC RBC Hgb Hct MCV MCH MCHC RDW Std Deviation RDW Coeff of Zachary Plt Count MPV Immature Gran % (Auto) Neut % (Auto) Lymph % (Auto) [place] % (Auto) Eos % (Auto) Baso % (Auto) Absolute Neuts (auto) Absolute Lymphs (auto) Total Counted Neutrophils % (Manual) Band Neutrophils % Lymphocytes % (Manual) Monocytes % (Manual) Nucleated RBC % Diff Path Review D-Dimer Quant (PE/DVT) Sodium Potassium Chloride Carbon Dioxide Anion Gap BUN Creatinine Estim Creat Clear Calc Est GFR (MDRD) Af Amer Est GFR (MDRD) Non-Af BUN/Creatinine Ratio Glucose Lactic Acid 1.7 Calcium Total Bilirubin AST ALT Alkaline Phosphatase Troponin I High Sens Total Protein Albumin Globulin Albumin/Globulin Ratio Urine Color Yellow Urine Clarity Sl. Cloudy Urine pH 6.5 Ur Specific [place] 1.015 Urine Protein Negative Urine Glucose (UA) Normal Urine Ketones Negative Urine Occult Blood Negative Urine Nitrite Negative Urine Bilirubin Negative Urine Urobilinogen Normal Ur Leukocyte Esterase Negative Urine RBC 0 SEEN Urine WBC 0 SEEN Ur Squamous Epith Cells 0-5 SEEN Urine Bacteria 0 SEEN Urine Mucus 0 SEEN Radiography Diagnostic Testing: Clinical Impression(s) from Imaging Studies Chest X-Ray 02/06/21 19:15 IMPRESSION: 1. Shallow inspiration, crowding of bronchovascular markings and mild basilar atelectasis. 2. No focal infiltrate consolidation or effusion. Electronically Signed: Sergei Fajardo MD at 19:54 EST Tel , Service support , Abdomen/Pelvis CT 02/06/21 20:04 IMPRESSION: 1. No evidence of masses bowel obstruction abscess or free air. 2. 3 mm nonobstructing calcification lower pole LEFT kidney. 3. Soft tissue stranding in the region of LEFT adnexa and trace free fluid noted. 4. Abnormal appearance of the endometrial cavity with a lobulated contour, low density and scattered air bubbles noted within the endometrial cavity. Hydrometrocolpos is suspected. Cystic mass in the lower uterine segment however is not excluded. Recommend follow-up evaluation with pelvic ultrasound. 5. Soft tissue stranding and likely hematoma in the subcutaneous soft tissue planes anterior to the LEFT rectus. 6. No evidence cholelithiasis. Electronically Signed: Sergei Fajardo MD at 22:19 EST Tel , Service support , Chest CTA 02/06/21 20:04 IMPRESSIONS: 1. No CTA evidence of pulmonary embolism. 2. No CTA evidence of aortic aneurysm or dissection 3. Normal CT appearance of the heart and pericardium. 4. Minimal pleural parenchymal scar and atelectasis in the lingular segment LEFT upper lobe. 5. Remaining lung zones clear. No acute infiltrate consolidation or effusion. Electronically Signed: Sergei Fajardo MD EKG Initial EKG: Attestation: I personally reviewed and interpreted this EKG as follows: Interpretation: No Acute Injury Pattern and Sinus Tachycardia (Otherwise normal EKG) Discharge Plan Triage Chief Complaint: Other, Pain/Inj ED Provider: Mathew Dominguez Dx/Rx/DC Orders Clinical Impression: Postoperative fever, Atelectasis, left, Left sided abdominal pain Instructions: Atelectasis Prescriptions: No Action promethazine 25 MG tablet 25 mg PO Q6H PRN PRN (Reason: Nausea) RF: 0 Nucynta 100 mg tablet 100 mg PO TID RF: 0 prednisone 10 mg tablet 10 mg PO DAILY RF: 0 clindamycin HCl 300 mg capsule 300 mg PO TID RF: 0 rizatriptan 10 mg tablet 10 mg PO PRN PRN (Reason: MIGRAINES) RF: 0 omeprazole 40 mg capsule,delayed release(DR/EC) 40 mg PO DAILY RF: 0 baclofen 20 mg tablet 20 mg PO TID RF: 0 docusate sodium [Stool Softener] 100 mg Capsule 300 mg PO TID RF: 0 Laxative Pills 25 mg Tablet 75 mg PO TID RF: 0 Breo Ellipta 100-25 mcg/dose blister with device 1 inh INHALATION DAILY RF: 0 oxycodone 5 MG tablet 5 - 10 mg PO Q8H PRN (Reason: severe pain) 5 Days Qty: 20 RF: 0 ibuprofen [ibuprofen] 600 MG tablet 600 mg PO Q6H PRN (Reason: Pain) 3 Days Qty: 12 RF: 1 Primary Care Provider: Juan Dasilva Referrals: Juan Dasilva MD [Primary Care Provider] - Yasmeen Phillips MD [STAFF PHYSICIAN] - 3-5 Days Activity Restrictions/Additional Instructions: Use incentive spirometer 5-10 times daily every hour while awake. Drink plenty of fluids. Disposition Disposition: Home, Self Care
[2021-02-06 19:07] LABS: Hematocrit 39.7 % (37-47); Hemoglobin 12.9 g/dL (12.0-15.0); Mean Corp Hgb Conc 32.5 g/dL (32-36); Mean Corpuscular Hgb 29.2 pg (27.0-32.0); Mean Corpuscular Volume 89.8 fL (81-99); Mean Platelet Vol. 9.6 fl (6.2-12.0); POSITIVE COUNT YES; POSITIVE MORPHOLOGY YES; Platelet Count 441 K/mm3 (150-450); RBC Distribution Width CV 13.1 % (11.6-14.6); RBC Distribution Width SD 42.9 fl (35.1-43.9); Red Blood Count 4.42 M/mm3 (4.2-5.4); White Blood Count 21.8 K/mm3 (4.4-11.0)
[2021-02-06 19:15] VITALS: BP 115/69; PULSE 108
--- NOTE | 2021-02-06 19:15 | RAD_ITS ---
INDICATION: fever EXAMINATION/TECHNIQUE: X-RAY - XR Chest 1 View COMPARISON: 12/29/2018 FINDINGS: LIFE-SUPPORT AND LINES: 1. None HEART AND VESSELS: The cardiac silhouette, pulmonary vasculature have normal appearance. No evidence of congestive failure. LUNGS AND PLEURAL SPACES: Shallow aspiration crowding of bronchovascular markings. Minimal atelectasis noted. No focal infiltrate or consolidation. MEDIASTINUM AND HILAR REGIONS: No masses adenopathy noted. No areas of calcification. Visualized upper airway is normal in position. BONY ELEMENTS: No acute bony changes noted. RAD/Chest 1 View (Portable) IMPRESSION: 1. Shallow inspiration, crowding of bronchovascular markings and mild basilar atelectasis. 2. No focal infiltrate consolidation or effusion. Electronically Signed: Sergei Fajardo MD at 19:54 EST Tel , Service support ,
[2021-02-06 19:32] LABS: ALB/GLOB Ratio 0.6 RATIO (0.9-2.4); AST(SGOT) 53 U/L (15-37); Alanine Aminotransfer ALT/SGPT 118 U/L (13-56); Alkaline Phosphatase 246 U/L (45-117); Anion Gap 7 (5-15); BUN 13 mg/dL (7-18); BUN/Creat Ratio 17.1 RATIO (10-20); Calcium,Total 9.6 mg/dL (8.5-10.1); Chloride 106 mmol/L (98-107); Creatinine, Serum 0.76 mg/dL (0.55-1.02); EST Glomerular Filtration Rate 89 mL/min (>60); Est Glom Filt Rate - Afr Amer 108 mL/min (>60); Estimated Creatinine Clearance 77.05 ml/min; Globulin 4.9 g/dL (2.2-4.2); Glucose 156 mg/dL (74-106); Potassium 4.9 mmol/L (3.5-5.1); Protein, Total 7.9 g/dL (6.4-8.2); Sodium Level 138 mmol/L (136-145); Troponin-I HS 3 pg/mL (3.0-54.0)
[2021-02-06 19:33] LABS: Differential Indicated MANUAL DIFF
[2021-02-06 19:53] VITALS: BP 117/79; PULSE 100; RESP 18; TEMP 37.1; O2SAT 97
[2021-02-06 20:00] LABS: Lymphocyte 18 % (19-41); Monocyte 8 % (0-10); Neutrophil-Band 1 % (0-5); Neutrophil-Segmented 73 % (47-70); Total Cells Counted 100 (MANUAL DIFF)
[2021-02-06 20:01] LABS: Scan Smear per Review Criteria MANUAL DIFF
[2021-02-06 20:02] LABS: Absolute Lymphocyte Count 3.92 X10^3/uL (0.83-4.51); Absolute Neutrophil Count 16.1 X10^3/uL (2.0-7.7)
[2021-02-06 20:03] LABS: D-Dimer Quantitative (DVT/PE) 0.75 FEU/ug/m (0.27-0.49)
--- NOTE | 2021-02-06 20:04 | CT_ITS ---
STUDY: CTA CHEST REASON FOR EXAM: Female, 40 years old. sob, fever, elevated d-dimer RADIATION DOSAGE (If Supplied By Facility): CTDIvol = ( 19.42 ) mGy, DLP = ( 2115.17 ) mGycm TECHNIQUE: The examination was performed with the intravenous administration of IV 100mL [id number]-370. Post-processing of the angiographic images was performed, with multiplanar reformation and 3D reconstruction. Individualized dose optimization techniques were used for this CT. COMPARISON: None. FINDINGS: Lines and tubes: 1. No life-support noted. CTA: PULMONARY ARTERIES: There is normal configuration and contrast opacification of pulmonary outflow tract, main pulmonary arteries, segmental and intersegmental pulmonary arteries bilaterally without evidence of intraluminal filling defects. AORTIC ARCH: The aortic arch and descending aorta have normal configuration. No evidence of dissection or aneurysmal dilatation. HEART: Cardiac contour is normal. No evidence pericardial effusion. CT CHEST: LUNGS: [No focal infiltrate or consolidation. Minimal area of scar and atelectasis in the lingular segment LEFT upper lobe. Remaining lung zones clear. No mass. No consolidation. PLEURAL SPACES: Unremarkable, no effusion or pneumothorax.. MEDIASTINUM AND LYMPH NODES: Unremarkable. No significant adenopathy. BONES: Unremarkable ABDOMEN: Within normal limits. Other: None IMPRESSIONS: 1. No CTA evidence of pulmonary embolism. 2. No CTA evidence of aortic aneurysm or dissection 3. Normal CT appearance of the heart and pericardium. 4. Minimal pleural parenchymal scar and atelectasis in the lingular segment LEFT upper lobe. 5. Remaining lung zones clear. No acute infiltrate consolidation or effusion. Electronically Signed: Sergei Fajardo MD at 22:45 EST Tel , Service support , CT/CTA Chest W/WO Contrast
--- NOTE | 2021-02-06 20:04 | CT_ITS ---
INDICATION: abd pain, fever, recent left ovarian surgery EXAMINATION: CT ABDOMEN AND PELVIS with CONTRAST - CT Abdomen And Pelvis W/ Contrast Injection TECHNIQUE: Multiple axial images were obtained of the abdomen following administration of IV contrast. Planar reconstructions obtained. A radiation dose optimization technique was used for this scan. IV Contrast dosage and agent: None. Oral contrast: None. COMPARISON: None. FINDINGS: LOWER THORAX: Minimal atelectasis at the lung bases. HEPATOBILIARY: Liver: The liver is homogeneous and shows no evidence of focal lesion. Gallbladder: The gallbladder is unremarkable. Pancreas: Pancreas is normal size configuration and density. No mass is noted. Spleen: The spleen is homogeneous and normal in size. . BOWEL: Stomach: The stomach is normal in size configuration, no evidence of focal masses, abnormal calcifications. No hiatal hernia noted. Bowel: Small and large have normal configuration, no masses or bowel obstruction noted. Appendix: Short segments of a normal appendix are noted.: GENITOURINARY: Adrenals: Both adrenal glands are normal in size. Kidneys: Kidneys appear symmetric in size. There is a small approximately 3 mm nonobstructing calcification in the lower pole of the LEFT kidney no other calcifications are seen in the collecting system. There is no hydronephrosis or surrounding fluid. Bladder: Normal Pelvic organs: Uterus has normal configuration however contains a loculated low density collection and scattered air bubbles present within the endometrial cavity. Minimal soft tissue stranding in the region LEFT adnexa without evidence of mass or sis fluid collection. RETROPERITONEUM: There is normal appearance of the abdominal aorta and inferior vena cava. LYMPH NODES: No evidence of retroperitoneal or para-aortic masses fluid collections or adenopathy. PERITONEAL CAVITY: No ascites noted ANTERIOR ABDOMINAL WALL: No evidence of hernia however there is soft tissue stranding and fluid in the subcutaneous soft tissue planes anterior to the LEFT rectus abdominis likely representing a small hematoma. BONES AND SOFT TISSUES: The skeleton shows no evidence for fractures or destructive lesions. OTHER: None CT/Abdomen/Pelvis W IV Cont ONLY IMPRESSION: 1. No evidence of masses bowel obstruction abscess or free air. 2. 3 mm nonobstructing calcification lower pole LEFT kidney. 3. Soft tissue stranding in the region of LEFT adnexa and trace free fluid noted. 4. Abnormal appearance of the endometrial cavity with a lobulated contour, low density and scattered air bubbles noted within the endometrial cavity. Hydrometrocolpos is suspected. Cystic mass in the lower uterine segment however is not excluded. Recommend follow-up evaluation with pelvic ultrasound. 5. Soft tissue stranding and likely hematoma in the subcutaneous soft tissue planes anterior to the LEFT rectus. 6. No evidence cholelithiasis. Electronically Signed: Sergei Fajardo MD at 22:19 EST Tel , Service support ,
[2021-02-06 20:07] LABS: Lactic Acid 1.7 mmol/L (0.4-1.9)
[2021-02-06 20:52] LABS: Bacteria 0 SEEN /hpf (None Seen); Mucous, Urine 0 SEEN /hpf (<or=2+); Red Blood Cells-Urine 0 SEEN /hpf (0-5); White Blood Cells 0 SEEN /hpf (0-5)
[2021-02-06 20:54] LABS: Color, Urine Yellow (Yellow); Glucose, Dipstick Normal (Normal); Ketone-Dipstick Negative (Negative); Leukocyte Esterase-Dipstick Negative /ul (Negative); Nitrite-Dipstick Negative (Negative); Occult Blood-Urine Negative /ul (Negative); Protein-Dipstick Negative (Negative); Specific Gravity, Urine 1.015 (1.002-1.030); Urine Bilirubin Dipstick Negative (Negative); Urine Clarity Sl. Cloudy (Clear); Urine Urobilinogen Normal (Normal); Urine pH 6.5 (5.0 - 8.0)
[2021-02-06 21:06] VITALS: BP 115/83; PULSE 103; RESP 16; TEMP 37.1; O2SAT 95
[2021-02-06 21:08] LABS: Squamous Epithelial Cells - UA 0-5 SEEN /hpf (5-10)
--- NOTE | 2021-02-06 21:55 | ED.RN ---
called CT to inquire about scans
[2021-02-06 22:08] VITALS: BP 109/73; PULSE 88; RESP 18; O2SAT 98
--- NOTE | 2021-02-06 23:00 | ED.RN ---
IS given and educated
[2021-02-11 10:33] LABS: Pathologist Review Reviewed
== END 2021-02-06 23:06 | disposition home or self-care (01) ==
PROVIDERS: Emergency Provider Emergency Medicine; PCP Family Medicine
DX: R50.82 Postprocedural fever (principal); J98.11 Atelectasis; R10.9 Unspecified abdominal pain; G47.30 Sleep apnea, unspecified; E66.01 Morbid (severe) obesity due to excess calories; Z87.891 Personal history of nicotine dependence
CPT/HCPCS: 36415; 71045; 71275; 74177; 80053; 81001; 83605; 84484; 85025; 85379; 87040; 87077; 87086; 87088; 87186; 93005; 99251; 99285; J7030; Q9967; A4216; G0463

== ENCOUNTER → 2021-07-09 | Outpatient (CLI) | payer OTHER, SELFPAY ==
[2021-07-09 12:17] LABS: Amphetamine Urine VISTA NEGATIVE (<1000 ng/mL); Barbiturate Urine VISTA NEGATIVE (< 200 ng/mL); Benzodiazepine Urine VISTA NEGATIVE (< 200 ng/mL); Cocaine Urine VISTA NEGATIVE (< 300 ng/mL); Ecstacy Urine VISTA POSITIVE (< 500 ng/mL); Methadone Urine VISTA NEGATIVE (< 300 ng/mL); PCP Urine VISTA NEGATIVE (< 25 ng/mL); THC Urine VISTA NEGATIVE (< 50 ng/mL); Vista UDS pH Range 6
== END | disposition home or self-care (01) ==
PROVIDERS: PCP Family Medicine; Referring Provider Anesthesiology Pain Medicine; Visit Provider Anesthesiology Pain Medicine
DX: F11.20 Opioid dependence, uncomplicated (principal)
CPT/HCPCS: 80307

== ENCOUNTER 2021-10-26 18:39 | Emergency (ER) | payer OTHER, SELFPAY ==
[2021-10-26 18:40] VITALS: BP 156/121; PULSE 105; RESP 24; TEMP 36.6; O2SAT 100; BMI 50.3
--- NOTE | 2021-10-26 19:02 | EDS_ITS ---
HPI History of Present Illness Chief Complaint: Abd Pain Detail of Chief Complaint: Abdominal pain status post hysterectomy Informant: patient Narrative Narrative: Patient presents to the emergency department complaint of abdominal pain that started 2 days ago. Patient states she had a hysterectomy 5 days ago done at [facility] by Dr. Martinez. Patient started with some erythema around the umbilicus 2 to 3 days ago and patient spoke with physician on-call for her surgeon who called in Augmentin for her. Patient started then having increased abdominal pain but she thinks erythema around the umbilicus is better. She has not had a fever although she been taken [id number] Tylenol and ibuprofen. Patient is having bowel movements. She denies dysuria. She denies vomiting. Patient complains of severe diffuse abdominal pain and low back pain. Prior similar symptoms: No PFSH PFSH Medical History (Updated 10/26/21 @ 22:[address] Carlos Michaud, DO) Asthma Constipation CPAP (continuous positive airway pressure) dependence Encounter for IUD removal Endometriosis Former smoker Frequent headaches Gastric reflux History of COVID-19 History of steroid therapy Hx of LEEP (loop electrosurgical excision procedure) of cervix complicating Lung disease Migraine headache Shoulder pain Sleep apnea SOB (shortness of breath) Wears glasses Home Medications promethazine 25 mg tablet 25 mg PO Q6H PRN PRN Nausea 10/16/18 [History Last Taken 01/30/21] tapentadol 100 mg tablet (Nucynta) 100 mg PO TID 07/11/20 [History Last Taken Unknown] baclofen 20 mg tablet 20 mg PO TID 01/29/21 [History Last Taken 01/30/21] clindamycin HCl 300 mg capsule 300 mg PO TID TOOTH INFECTION, TOOTH PAIN 01/29/21 [History Last Taken Unknown] docusate sodium 100 mg capsule (Stool Softener) 300 mg PO TID 01/29/21 [History Last Taken Unknown] fluticasone furoate 100 mcg-vilanterol 25 mcg/dose inhalation powder (Breo Ellipta) 1 inh inhalation DAILY SOB 01/29/21 [History Last Taken Unknown] omeprazole 40 mg capsule,delayed release 40 mg PO DAILY 01/29/21 [History Last Taken Unknown] prednisone 10 mg tablet 10 mg PO DAILY 01/29/21 [History Last Taken 01/30/21] rizatriptan 10 mg tablet 10 mg PO PRN PRN MIGRAINES 01/29/21 [History Last Taken Unknown] sennosides 25 mg tablet (Laxative Pills) 75 mg PO TID 01/29/21 [History Last Taken Unknown] ibuprofen 600 mg tablet 600 mg PO Q6H PRN Pain 3 days #12 TABLETS 01/30/21 [Rx Last Taken Unknown] oxycodone 5 mg tablet 5 - 10 mg PO Q8H PRN severe pain 5 days #20 TABLETS 01/30/21 [Rx Last Taken Unknown] Allergy/AdvReac Type Severity Reaction Status Date / Time doxycycline Allergy Shortness Verified 10/26/21 18:44 of breath hydrocodone [From Vicodin] Allergy Vomiting Verified 10/26/21 18:43 Sulfa (Sulfonamide Allergy Hives Verified 10/26/21 18:43 Antibiotics) triamcinolone [From Kenalog] Allergy Other Verified 10/26/21 18:43 Surgical History H/O bilateral salpingectomy History of bronchoscopy History of Hx of heart surgery Hx of shoulder surgery S/P complete hysterectomy Social History Smoking Status: Former smoker ROS ROS ED Review of Systems ROS Unobtainable: other Constitutional Constitutional ED: Reports lethargy; Denies chills, fever(s), sweats or weight loss Eyes Eyes: Denies blurry vision, change in vision or diplopia ENT ENT ED: Denies rhinorrhea or sore throat Cardiovascular Cardiovascular: Denies chest pain, orthopnea or racing heartbeat Respiratory/Chest Respiratory/Chest: Denies cough, dyspnea, dyspnea on exertion, orthopnea or sputum Gastrointestinal Gastrointestinal: Reports abdominal pain; Denies diarrhea, nausea or vomiting Genitourinary Genitourinary ED: Denies dysuria, hematuria or urinary frequency Musculoskeletal Musculoskeletal: Denies arthralgias, back pain, myalgias or neck pain Integumentary Denies abscess, Abrasions or rash Neurologic Neurologic: Denies headache(s) or weakness Psychiatric Psychiatric: Denies anxiety, depression or suicidal thoughts Endocrine Endocrinology: Denies polydipsia, polyphagia or polyuria Hematologic/Lymphatic Hematologic/Lymphatic: Denies easy bleeding, easy bruising or lymphadenopathy Allergic/Immunologic Allergic/Immunologic ED: Denies mouth swelling, tongue swelling or urticaria EXAM Physical Exam Const Vital Signs: 10/26/21 18:40 10/26/21 20:04 10/26/21 20:04 Temperature 98 F 98.0 F Temperature Source Temporal Temporal Pulse Rate 105 H 81 81 Respiratory Rate 24 H 17 17 Blood Pressure 156/121 H 137/86 H 137/86 H Blood Pressure Mean 132 103 103 Pulse Ox 100 100 100 Oxygen Delivery Method Room Air Room Air Room Air Positive well nourished and well developed General Appearance ED: well developed and NAD HEENT Reports TM's clear and moist mucous membranes normocephalic and atraumatic; Negative for trauma or tenderness Tympanic Membrane ED: Yes TM's clear Eyes PERRL and EOMs intact bilaterally General Eye ED: Negative for pale conjunctiva or scleral icterus Neck no lymphadenopathy, supple and no JVD General: Negative for tenderness Chest Wall inspection of chest normal and palpation of chest normal Chest: Negative for tenderness Resp normal respiratory effort and clear to auscultation bilaterally Effort and Inspection: Negative for respiratory distress or pain with movement Auscultation: Negative for rhonchi, wheezes or diminished lung sounds Cardio regular rate, regular rhythm, S1 normal heart sound, S2 normal heart sound and no murmurs Peripheral Pulses: pulses 2+ throughout GI normal to inspection, nondistended, normoactive bowel sounds, soft to palpation, non-distended and no masses GI Narrative: Patient's incisions from ports on abdomen without evidence of infection currently without cellulitic changes. There is ecchymosis and bruising noted diffusely about the abdomen. Patient has diffuse tenderness on exam. There is guarding. There is no rebound or rigidity. Back/Spine no CVA tenderness and no thoracic nor lumbar tenderness Extremity normal to inspection General Extremety ED: Negative for edema General Extremity: Negative for edema Neuro oriented x3, CN's II-XII intact bilaterally, no sensory deficits noted and gait normal Sensorium / Orientation: awake, alert, oriented to person, oriented to place and oriented to time Motor Exam: strength 5/5 throughout and strength abnormal Psych mental status grossly normal Skin no rashes or lesions noted and no wounds MDM MDM MDM Narrative Medical decision making narrative: IV line was very difficult. Patient was given Dilaudid 1 mg IM as well as Zofran 4 mg IM for her pain. Eventually lab was able to draw labs and she has a white count of 9.9. Chemistries unremarkable. Lactate was 2.0. Urinalysis showed 25-50 RBCs without signs of infection. CT scan of the M pelvis ordered and pending. Care turned over to evening physician awaiting CT results and final disposition Lab Data Attestation: I reviewed the patient's lab results. Labs: Laboratory Results - last 24 hr 10/26/21 10/26/21 10/26/21 19:30 21:30 21:30 WBC 9.9 RBC 4.19 L Hgb 12.4 Hct 39.8 MCV 95.0 MCH 29.6 MCHC 31.2 L RDW Std Deviation 44.4 H RDW Coeff of Zachary 12.9 Plt Count 321 MPV 9.4 Immature Gran % (Auto) 0.500 Neut % (Auto) 63.8 Lymph % (Auto) 23.8 [place] % (Auto) 4.5 Eos % (Auto) 6.9 H Baso % (Auto) 0.5 Absolute Neuts (auto) 6.3 Absolute Lymphs (auto) 2.35 Nucleated RBC % 0 Sodium 142 Potassium 4.1 Chloride 109 H Carbon Dioxide 24.0 Anion Gap 9 BUN 8 Creatinine 0.69 Estim Creat Clear Calc 84.00 Est GFR (MDRD) Af Amer 120 Est GFR (MDRD) Non-Af 99 BUN/Creatinine Ratio 11.6 Glucose 99 Lactic Acid Calcium 9.0 Urine Color Yellow Urine Clarity Sl. Cloudy Urine pH 6.0 Ur Specific [place] 1.015 Urine Protein Negative Urine Glucose (UA) Normal Urine Ketones Negative Urine Occult Blood 150 H Urine Nitrite Negative Urine Bilirubin Negative Urine Urobilinogen Normal Ur Leukocyte Esterase 25 H Urine RBC 25-50 SEEN Urine WBC 0-5 SEEN Ur Squamous Epith Cells 0-5 SEEN Amorphous Sediment 1+ URATE Urine Bacteria 0 SEEN Urine Mucus 0 SEEN 10/26/21 21:30 WBC RBC Hgb Hct MCV MCH MCHC RDW Std Deviation RDW Coeff of Zachary Plt Count MPV Immature Gran % (Auto) Neut % (Auto) Lymph % (Auto) [place] % (Auto) Eos % (Auto) Baso % (Auto) Absolute Neuts (auto) Absolute Lymphs (auto) Nucleated RBC % Sodium Potassium Chloride Carbon Dioxide Anion Gap BUN Creatinine Estim Creat Clear Calc Est GFR (MDRD) Af Amer Est GFR (MDRD) Non-Af BUN/Creatinine Ratio Glucose Lactic Acid 2.0 Calcium Urine Color Urine Clarity Urine pH Ur Specific [place] Urine Protein Urine Glucose (UA) Urine Ketones Urine Occult Blood Urine Nitrite Urine Bilirubin Urine Urobilinogen Ur Leukocyte Esterase Urine RBC Urine WBC Ur Squamous Epith Cells Amorphous Sediment Urine Bacteria Urine Mucus Discharge Plan Triage Chief Complaint: Abd Pain ED Provider: Carlos Michaud Dx/Rx/DC Orders Clinical Impression: Acute postoperative abdominal pain Prescriptions: No Action promethazine 25 MG tablet 25 mg PO Q6H PRN PRN (Reason: Nausea) Nucynta 100 mg tablet 100 mg PO TID Label Comments: take 1 tablet by mouth three times a day for 7 days prednisone 10 mg tablet 10 mg PO DAILY Label Comments: take 1 tablet by mouth once daily clindamycin HCl 300 mg capsule 300 mg PO TID Label Comments: take 1 tablet by mouth three times a day until finished rizatriptan 10 mg tablet 10 mg PO PRN PRN (Reason: MIGRAINES) Label Comments: take 1 tablet by mouth if needed for migraines ( take as directed by prescriber ) omeprazole 40 mg capsule,delayed release(DR/EC) 40 mg PO DAILY Label Comments: take 1 capsule by mouth once daily baclofen 20 mg tablet 20 mg PO TID Label Comments: TAKE 1 TABLET BY MOUTH THREE TIMES A DAY NEEDED FOR MUSCLE SPASMS. docusate sodium [Stool Softener] 100 mg Capsule 300 mg PO TID Laxative Pills 25 mg Tablet 75 mg PO TID Breo Ellipta 100-25 mcg/dose blister with device 1 inh INHALATION DAILY Label Comments: inhale 1 puff by mouth and INTO THE LUNGS once daily oxycodone 5 MG tablet 5 - 10 mg PO Q8H PRN (Reason: severe pain) 5 Days Qty: 20 0RF ibuprofen [ibuprofen] 600 MG tablet 600 mg PO Q6H PRN (Reason: Pain) 3 Days Qty: 12 1RF Primary Care Provider: Juan Dasilva Referrals: Juan Dasilva MD [Primary Care Provider] -
[2021-10-26 19:56] LABS: Bacteria 0 SEEN /hpf (None Seen); Mucous, Urine 0 SEEN /hpf (<or=2+)
[2021-10-26 20:00] LABS: Color, Urine Yellow (Yellow); Glucose, Dipstick Normal (Normal); Ketone-Dipstick Negative (Negative); Leukocyte Esterase-Dipstick 25 /ul (Negative); Nitrite-Dipstick Negative (Negative); Occult Blood-Urine 150 /ul (Negative); Protein-Dipstick Negative (Negative); Specific Gravity, Urine 1.015 (1.002-1.030); Urine Bilirubin Dipstick Negative (Negative); Urine Clarity Sl. Cloudy (Clear); Urine Urobilinogen Normal (Normal)
[2021-10-26] MEDS: Ondansetron 4 MG/2 ML Vial IV (20:00)
[2021-10-26] MEDS: 0.9% Normal Saline 1,000 ML 125 ML IV (20:00)
[2021-10-26] MEDS: Morphine 4 MG/ML Syringe IV (20:00)
[2021-10-26 20:04] VITALS: BP 137/86; PULSE 81; RESP 17; TEMP 36.7; O2SAT 100
[2021-10-26 20:09] LABS: Amorphous Sediment 1+ URATE; Red Blood Cells-Urine 25-50 SEEN /hpf (0-5); Squamous Epithelial Cells - UA 0-5 SEEN /hpf (5-10); White Blood Cells 0-5 SEEN /hpf (0-5)
[2021-10-26] MEDS: HYDROmorphone 1 MG/ML Syringe IV ×2 (21:21→23:22)
[2021-10-26 21:38] LABS: Absolute Lymphocyte Count 2.35 X10^3/uL (0.83-4.51); Absolute Neutrophil Count 6.3 X10^3/uL (2.0-7.7); Basophil# 0.05 X10^3/uL; Basophil% 0.5 % (0-1); Eosinophil# 0.68 X10^3/uL; Eosinophils% 6.9 % (0-5); Hematocrit 39.8 % (37-47); Hemoglobin 12.4 g/dL (12.0-15.0); Lymphocyte # 2.35 X10^3/ul (0.83-4.51); Lymphocyte % 23.8 % (19-41); Mean Corp Hgb Conc 31.2 g/dL (32-36); Mean Corpuscular Hgb 29.6 pg (27.0-32.0); Mean Platelet Vol. 9.4 fl (6.2-12.0); Monocyte# 0.44 X10^3/uL; Monocyte% 4.5 % (0-10); NRBC Flagged by Analyzer 0 % (0-5); Neutrophil % 63.8 % (47-70); Platelet Count 321 K/mm3 (150-450); RBC Distribution Width CV 12.9 % (11.6-14.6); RBC Distribution Width SD 44.4 fl (35.1-43.9); Red Blood Count 4.19 M/mm3 (4.2-5.4); White Blood Count 9.9 K/mm3 (4.4-11.0)
--- NOTE | 2021-10-26 21:46 | CT_ITS ---
EXAM: CT ABDOMEN AND PELVIS WITHOUT INTRAVENOUS CONTRAST CLINICAL INDICATION: post op abdominal pain TECHNIQUE: Helically acquired images were obtained of the abdomen and pelvis without intravenous contrast. CTDIvol = ( 32.45 ) mGy, DLP = ( 1808.24 ) mGycm This CT exam was performed using one or more of the following dose reduction techniques: automated exposure control, adjustment of the mA and/or kV according to patient size, and/or use of iterative reconstruction technique. This report was created using Symplified report generation technology. COMPARISON: None. FINDINGS: LOWER THORAX: Mild scarring and/or subsegmental atelectasis at the lung bases. No cardiomegaly. No significant pericardial effusion. ABDOMEN: LIVER: Unremarkable. Homogeneous. GALLBLADDER AND BILE DUCTS: Unremarkable. No calcified gallstones. No gallbladder distention or wall edema. No intra- or extrahepatic biliary ductal dilation. PANCREAS: Unremarkable. No focal cystic mass. SPLEEN: Unremarkable. Normal size without focal cystic or solid mass. ADRENALS: Unremarkable. No nodules. KIDNEYS AND URETERS: 3 mm nonobstructing calyceal calculus at the lower pole left kidney. No other renal adenitis. STOMACH AND BOWEL: Fluid distended proximal to mid small bowel bowel loops measuring up to 2.8 cm with decompressed distal small bowel is concerning for a mid-level small bowel obstruction. No colitis or diverticulitis. PELVIS: APPENDIX: No appendicitis. BLADDER: Unremarkable. REPRODUCTIVE: Stranding involving the pelvis with absent uterus. This may represent post surgical change. Correlate with created prior hysterectomy. No adnexal masses. ABDOMEN and PELVIS: INTRAPERITONEAL SPACE: No free air or free fluid. BONES/JOINTS: Unremarkable. No suspicious lytic or blastic abnormality. SOFT TISSUES: Unremarkable. No discrete abdominal or pelvic wall hernia. VASCULATURE: Unremarkable. Abdominal aorta is non-dilated. LYMPH NODES: Unremarkable. No enlarged lymph nodes. CT/Abdomen/Pelvis without Cont IMPRESSION: 1. Fluid distended proximal to mid small bowel bowel loops measuring up to 2.8 cm with decompressed distal small bowel is concerning for a mid-level small bowel obstruction. 2. 3 mm nonobstructing calyceal calculus at the lower pole left kidney. Electronically Signed: Bayron Gates MD at 22:19 EDT ,
[2021-10-26 22:03] LABS: Anion Gap 9 (5-15); BUN 8 mg/dL (7-18); BUN/Creat Ratio 11.6 RATIO (10-20); Chloride 109 mmol/L (98-107); Creatinine, Serum 0.69 mg/dL (0.55-1.02); EST Glomerular Filtration Rate 99 mL/min (>60); Est Glom Filt Rate - Afr Amer 120 mL/min (>60); Glucose 99 mg/dL (74-106); Potassium 4.1 mmol/L (3.5-5.1); Sodium Level 142 mmol/L (136-145)
[2021-10-26 23:25] VITALS: BP 113/83; PULSE 92; RESP 18; TEMP 36.7; O2SAT 97
[2021-10-26 23:55] VITALS: BP 113/83; PULSE 92; RESP 18; O2SAT 94
[2021-10-27] MEDS: oxyCODONE 5 MG Tablet 10 MG PO (01:09)
[2021-10-27 01:11] VITALS: BP 111/65; PULSE 92; RESP 16
[2021-10-27 01:36] LABS: Reflex Lactate? Y
== END 2021-10-27 01:40 | disposition home or self-care (01) ==
PROVIDERS: Emergency Provider Emergency Medicine; PCP Family Medicine; Visit Provider Emergency Medicine
DX: R10.9 Unspecified abdominal pain (principal); G47.30 Sleep apnea, unspecified; J45.909 Unspecified asthma, uncomplicated; G43.909 Migraine, unspecified, not intractable, without status migrainosus; Z86.16 Personal history of COVID-19; Z79.899 Other long term (current) drug therapy; Z87.891 Personal history of nicotine dependence
CPT/HCPCS: 74176; 80048; 81001; 83605; 85025; 96372; 96374; 96375; 96376; 99284; J7030; A4216; J2405

== ENCOUNTER 2021-11-04 01:30 | Emergency (ER) | payer OTHER, SELFPAY ==
[2021-11-04 01:31] VITALS: BP 151/54; PULSE 113; RESP 20; TEMP 36.4; O2SAT 99; BMI 50.2
--- NOTE | 2021-11-04 01:56 | EX.ED.DYSGE1 ---
HPI History of Present Illness Chief Complaint: Abd Pain Informant: patient Narrative Narrative: Patient presents with abdominal pain and I believe nausea and vomiting. She had complete hysterectomy done at [facility] by Dr. Martinez on 21 October. She was here a little over a week ago with pain. She had work-up including CT scan. She has not yet followed up with Dr. Martinez. She has an appointment in 2 days. She did call her on Wednesday as she was having redness around the port sites. She was also having some discomfort with urination. She was prescribed Cipro. She still has not yet taken that. She was going to start that today but felt too nauseated. She has been history of reflux. She is having a lot of pain in the upper abdomen. She gets acid taste. But she also has pain in the lower abdomen. No vaginal discharge. She does have some discomfort with urination. Highest temperature that she has taken was 99.7. She also is on chronic pain management but that is for her chronic hip pain not her chronic abdominal pain. No anticoagulation. No chest pains or trouble breathing. Nothing makes her symptoms better. [facility] Medical History (Updated 11/04/21 @ 05:[address] Margarito Griffin MD) Asthma Constipation CPAP (continuous positive airway pressure) dependence Encounter for IUD removal Endometriosis Former smoker Frequent headaches Gastric reflux GERD (gastroesophageal reflux disease) History of COVID-19 History of steroid therapy Hx of LEEP (loop electrosurgical excision procedure) of cervix complicating Kidney stones Lung disease Migraine headache Shoulder pain Sleep apnea SOB (shortness of breath) Wears glasses Home Medications promethazine 25 mg tablet 25 mg PO Q6H PRN PRN Nausea 10/16/18 [History Last Taken 01/30/21] baclofen 20 mg tablet 20 mg PO TID 01/29/21 [History Last Taken 01/30/21] fluticasone furoate 100 mcg-vilanterol 25 mcg/dose inhalation powder (Breo Ellipta) 1 inh inhalation DAILY SOB 01/29/21 [History Last Taken Unknown] rizatriptan 10 mg tablet 10 mg PO PRN PRN MIGRAINES 01/29/21 [History Last Taken Unknown] ibuprofen 600 mg tablet 600 mg PO Q6H PRN Pain 3 days #12 TABLETS 01/30/21 [Rx Last Taken Unknown] cetirizine 10 mg tablet 10 mg PO BID 10/26/21 [History Last Taken Unknown] diclofenac sodium 1 % topical gel 1 ea topical DAILY 10/26/21 [History Last Taken Unknown] estradiol 0.025 mg/24 hr weekly transdermal patch 1 patch transdermal QWEEK 10/26/21 [History Last Taken Unknown] gabapentin 400 mg capsule 400 mg PO 5X/DAY 10/26/21 [History Last Taken Unknown] levetiracetam 750 mg tablet 750 mg PO BID 10/26/21 [History Last Taken Unknown] ondansetron 4 mg disintegrating tablet 4 mg PO PRN PRN Nausea 10/26/21 [History Last Taken Unknown] pseudoephedrine HCl 60 mg tablet (Sudogest) 60 mg PO TID 10/26/21 [History Last Taken Unknown] esomeprazole magnesium 20 mg capsule,delayed release (Nexium) 20 mg PO DAILY #30 caps 11/04/21 [Rx Last Taken Unknown] oxycodone-acetaminophen 5 mg-325 mg tablet (Percocet) 1 tab PO Q6H PRN Pain 11/04/21 [History Last Taken Unknown] Allergy/AdvReac Type Severity Reaction Status Date / Time doxycycline Allergy Shortness Verified 11/04/21 01:34 of breath hydrocodone [From Vicodin] Allergy Vomiting Verified 11/04/21 01:34 Sulfa (Sulfonamide Allergy Hives Verified 11/04/21 01:34 Antibiotics) triamcinolone [From Kenalog] Allergy Other Verified 11/04/21 01:34 Surgical History H/O bilateral salpingectomy History of bronchoscopy History of Hx of heart surgery Hx of shoulder surgery S/P complete hysterectomy Social History Smoking Status: Former smoker ROS ROS ED Constitutional Constitutional ED: Denies chills, fever(s) or subjective Eyes Eyes: Denies blurry vision ENT ENT ED: Denies rhinorrhea or sore throat Cardiovascular Cardiovascular: Denies chest pain, palpitations or racing heartbeat Respiratory/Chest Respiratory/Chest: Denies cough or dyspnea Gastrointestinal Gastrointestinal: Reports abdominal pain, nausea and vomiting; Denies constipation, diarrhea or melena Genitourinary Genitourinary ED: Reports dysuria and urinary frequency; Denies hematuria Musculoskeletal Musculoskeletal: Denies arthralgias or myalgias Integumentary Reports other Details: Does feel as though there is some redness around her port sites. ; Denies Abrasions or rash Neurologic Neurologic: Denies headache(s) Psychiatric Psychiatric: Reports anxiety Hematologic/Lymphatic Hematologic/Lymphatic: Denies easy bleeding or easy bruising Allergic/Immunologic Allergic/Immunologic ED: Denies urticaria EXAM Physical Exam Const Vital Signs: 11/04/21 01:31 11/04/21 02:58 11/04/21 05:00 Temperature 97.6 F L 98.5 F Temperature Source Oral Oral Pulse Rate 113 H 113 H 110 H Respiratory Rate 20 H 18 16 Blood Pressure 151/54 H 126/95 H 107/62 Blood Pressure Mean 86 105 77 Pulse Ox 99 100 100 Oxygen Delivery Method Room Air Room Air Room Air 11/04/21 07:03 Temperature Temperature Source Pulse Rate 74 Respiratory Rate 16 Blood Pressure 110/64 Blood Pressure Mean Pulse Ox 99 Oxygen Delivery Method Positive well nourished and well developed General Appearance ED: well developed and NAD; Negative for cyanotic or diaphoretic HEENT Reports moist mucous membranes Eyes General Eye ED: Negative for scleral icterus Neck no JVD Resp normal respiratory effort and clear to auscultation bilaterally Auscultation: Negative for rales, rhonchi or wheezes Cardio regular rhythm Rate: tachycardic GI normal to inspection, nondistended, normoactive bowel sounds GI Narrative: Abdomen is large but does not look distended. Bowel sounds are normal. There is mild nonfocal tenderness everywhere in the abdomen. No specific area seems different than others. There is no rebound or guarding. She has 3 prior port sites from the surgery with an extra 1 in the umbilicus. There is some mild erythema toward the ones in the left but it is quite mild. There is no purulent discharge. They are healing over. These do not look badly infected at all. Back/Spine no CVA tenderness Extremity normal to inspection General Extremety ED: Negative for tenderness Neuro Sensorium / Orientation: alert Skin no rashes or lesions noted MDM MDM MDM Narrative Medical decision making narrative: Multiple attempts were made to get IV access. We are not able to get IV or blood. She does not want this tried anymore. She has chronic problems with this. She just wants medicines as an IM shot. We did talk to her about still getting the urinalysis. We will still do a CT scan of the abdomen. She does not feel like drinking contrast. We will do CT without contrast. I think she has enough intraperitoneal fat that we should be able to see stranding or other acute abnormalities of significance. She will be rechecked after medication. CT scan is suspicious for some mild pancreatitis involving the uncinate process. This was not seen on her other scans. This does match her symptoms with pain in the upper abdomen and she states it is radiating a little bit to the back at this time. She still having pain. Nausea is a little bit better but still present. But she states looking at the overhead lights is now causing a migraine. I talked to her again about getting an IV. She states normally they either use ultrasound or get the best person on the floor to get it. I talked with her about placing a central line. I explained what this was but she states she already knows what they are and she will not except a central line. We will try further medicines as IM shots. If we can get her better, I think we can get her home. But we need to have the nausea and pain somewhat controlled. If we cannot control this she may need to come in the hospital. We are were able to get an IV in. She is being given fluids. Blood work is sent off. Her white count is elevated. But looking at her old labs this is pretty common. Electrolytes are overall unremarkable. Glucose is only 116. Alk phos is 124 but rest of her liver function test are normal and she has had elevations in the past. Lipase is normal. Patient was rechecked. She looks calm and relaxed now. She is looking at her phone texting or doing searching. She states she has Zofran and Phenergan available at home. She states she has no nausea at all. She is already on pain meds prescribed by pain management. She received 56 tablets of 5 mg oxycodone about 1 week ago. Patient wanted to talk again. I went in to talk to the patient again. We went over all of her results. I explained that her white count is elevated a bit but it has been elevated before. We are not finding any source of infection. Her's CAT scan does not hint of any infection. Her urine is clean. She has no pulmonary symptoms. Her external wounds have minimal erythema but no drainage. They do not look notably infected. Patient complained that she cannot eat or drink anything. But she then told me that she chugged 4 of her jugs of electrolyte drinks before she came in here. She has no nausea. She did not vomit. Her CT did show some mild signs of pancreatitis. But with no nausea vomiting I think she can go home with this. She is tolerating p.o. She can stay on clear liquids. Her lipase was normal which leans against a significant pancreatitis. There is no sign of abnormal finding on her surgical wound. She tells me that her pain is getting progressively worse ever since surgery. But we are now 2 weeks later and we are not finding significant causes for this. She states after she left here last Wednesday she doubled over with pain and has been in pain ever since. I am not finding any reason for this patient to need admission at this time. I will give her another dose of pain meds. We will give her a p.o. challenge even though she is already passed 1 we will try again. I also explained to her that her pain will be a little bit difficult to manage because she is on chronic narcotics. She has, therefore, built up tolerance to these medications. I am using very good doses of pain meds to control this. She looks comfortable. She has been on her phone most of the time. Lab Data Attestation: I reviewed the patient's lab results. Labs: Laboratory Results - last 24 hr 11/04/21 11/04/21 11/04/21 02:30 04:40 04:40 WBC 16.8 H RBC 3.91 L Hgb 11.8 L Hct 35.5 L MCV 90.8 MCH 30.2 MCHC 33.2 RDW Std Deviation 42.3 RDW Coeff of Zachary 12.9 Plt Count 294 MPV 9.8 Immature Gran % (Auto) 0.500 Neut % (Auto) 77.2 H Lymph % (Auto) 13.8 L [place] % (Auto) 6.9 Eos % (Auto) 1.1 Baso % (Auto) 0.5 Absolute Neuts (auto) 12.9 H Absolute Lymphs (auto) 2.31 Nucleated RBC % 0 Sodium 138 Potassium 4.0 Chloride 104 Carbon Dioxide 27.0 Anion Gap 7 BUN 10 Creatinine 0.65 Estim Creat Clear Calc 89.17 Est GFR (MDRD) Af Amer 128 Est GFR (MDRD) Non-Af 106 BUN/Creatinine Ratio 15.4 Glucose 116 H Calcium 9.1 Total Bilirubin 0.30 AST 35 ALT 49 Alkaline Phosphatase 124 H Total Protein 7.1 Albumin 3.4 Globulin 3.7 Albumin/Globulin Ratio 0.9 Lipase 98 Urine Color Yellow Urine Clarity Clear Urine pH 7.0 Ur Specific [place] 1.005 Urine Protein Negative Urine Glucose (UA) Normal Urine Ketones Negative Urine Occult Blood Negative Urine Nitrite Negative Urine Bilirubin Negative Urine Urobilinogen Normal Ur Leukocyte Esterase Negative Urine RBC 0 SEEN Urine WBC 0 SEEN Ur Squamous Epith Cells 0-5 SEEN Urine Bacteria RARE Urine Mucus 0 SEEN Radiography Diagnostic Testing: Clinical Impression(s) from Imaging Studies Abdomen/Pelvis CT 11/04/21 02:37 IMPRESSION: 1. Expected postoperative change from hysterectomy with no evidence of postoperative fluid collection. 2. Nonobstructing 4 mm left lower renal pole calculus. 3. Findings suggesting a mild pancreatitis involving the uncinate process. Electronically Signed: Taj Chao MD at 3:50 EDT , EKG Initial EKG: Comments: EKG done for epigastric pain and read by me shows sinus rhythm with mildly tachycardic rate at 104. No ventricular ectopy. Nonspecific ST and T wave changes but no sign of acute infarct. IN interval, QRS duration and QTc are normal. Discharge Plan Triage Chief Complaint: Abd Pain ED Provider: Margarito Griffin Dx/Rx/DC Orders Clinical Impression: Abdominal pain, Pancreatitis Instructions: Abdominal Pain, ED Pancreatitis Prescriptions: New esomeprazole magnesium [Nexium] 20 mg capsule,delayed release(DR/EC) 20 mg PO DAILY Qty: 30 0RF No Action promethazine 25 MG tablet 25 mg PO Q6H PRN PRN (Reason: Nausea) rizatriptan 10 mg tablet 10 mg PO PRN PRN (Reason: MIGRAINES) Label Comments: take 1 tablet by mouth if needed for migraines ( take as directed by prescriber ) baclofen 20 mg tablet 20 mg PO TID Label Comments: TAKE 1 TABLET BY MOUTH THREE TIMES A DAY NEEDED FOR MUSCLE SPASMS. fluticasone furoate-vilanterol [Breo Ellipta] 100-25 mcg/dose blister with device 1 inh INHALATION DAILY Label Comments: inhale 1 puff by mouth and INTO THE LUNGS once daily ibuprofen [ibuprofen] 600 MG tablet 600 mg PO Q6H PRN (Reason: Pain) 3 Days Qty: 12 1RF ondansetron 4 mg tablet,disintegrating 4 mg PO PRN PRN (Reason: Nausea) Label Comments: TAKE 1 TABLET BY MOUTHTEVERY 8 HOURS NEEDED FOR NAUSEA AND VOMITING cetirizine 10 mg Tablet 10 mg PO BID gabapentin 400 mg capsule 400 mg PO 5X/DAY Label Comments: TAKE 1 CAPSULE BY MOUTHEFOUR TIMES A DAYOR estradiol 0.025 mg/24 hr patch weekly 1 patch transdermal QWEEK levetiracetam 750 mg tablet 750 mg PO BID Label Comments: TAKE 1 TABLET BY MOUTH 2CTIMES A DAY pseudoephedrine HCl [Sudogest] 60 mg tablet 60 mg PO TID Label Comments: Take 1 tablet by mouthTthree times daily asNneeded.U diclofenac sodium 1 % Gel 1 ea TOPICAL DAILY oxycodone-acetaminophen [Percocet] 5-325 mg Tablet 1 tab PO Q6H PRN (Reason: Pain) Primary Care Provider: Juan Dasilva Referrals: Juan Dasilva MD [Primary Care Provider] - 3-5 Days if not improving Activity Restrictions/Additional Instructions: Follow-up with Dr. Felipe for recheck as soon as possible. Disposition Disposition: Home, Self Care Discharge Date/Time: 11/04/21 07:13
--- NOTE | 2021-11-04 02:37 | CT_ITS ---
STUDY: CT ABDOMEN AND PELVIS WITHOUT CONTRAST REASON FOR EXAM: Female, 41 years old. Abdominal pain status post hysterectomy RADIATION DOSAGE (If Supplied By Facility): CTDIvol = ( 24.17 ) mGy, DLP = ( 1237.68 ) mGycm TECHNIQUE: Transaxial images were obtained from the dome of the diaphragm to the symphysis pubis without oral contrast, and without intravenous contrast. Sagittal and coronal images were reconstructed. Individualized dose optimization techniques were used for this CT. COMPARISON: None. FINDINGS: Bilateral linear atelectasis versus scar formation at the lung bases. The visualized portions of the heart are within normal limits. Normal liver. Normal gallbladder and extrahepatic biliary system. Normal spleen. There is mild infiltration of the peripancreatic fat surrounding the uncinate process Normal bilateral adrenal glands. No renal parenchymal lesion. There is a 4 mm calculus in the left lower renal pelvis. No hydronephrosis. Normal bilateral ureters. Normal visualized stomach. Normal small intestine. Mild diverticular disease of the sigmoid colon without localized inflammation. The appendix is visualized and appears normal. Normal abdominal aorta. Normal inferior vena cava. Normal retroperitoneum. Normal urinary bladder. Uterus is surgically absent. There is mild inflammatory stranding within the post hysterectomy bed without evidence of postoperative fluid collection. Normal abdominal wall. Normal osseous structures. CT/Abdomen/Pelvis without Cont IMPRESSION: 1. Expected postoperative change from hysterectomy with no evidence of postoperative fluid collection. 2. Nonobstructing 4 mm left lower renal pole calculus. 3. Findings suggesting a mild pancreatitis involving the uncinate process. Electronically Signed: Taj Chao MD at 3:50 EDT ,
[2021-11-04] MEDS: fentaNYL 100 MCG/2 ML Ampul 50 MCG IM (02:46)
[2021-11-04] MEDS: Ondansetron 4 MG/2 ML Vial IM (02:47)
[2021-11-04 02:58] VITALS: BP 126/95; PULSE 113; RESP 18; O2SAT 100
[2021-11-04 03:10] LABS: Mucous, Urine 0 SEEN /hpf (<or=2+); Red Blood Cells-Urine 0 SEEN /hpf (0-5); White Blood Cells 0 SEEN /hpf (0-5)
[2021-11-04 03:14] LABS: Color, Urine Yellow (Yellow); Glucose, Dipstick Normal (Normal); Ketone-Dipstick Negative (Negative); Leukocyte Esterase-Dipstick Negative /ul (Negative); Nitrite-Dipstick Negative (Negative); Occult Blood-Urine Negative /ul (Negative); Protein-Dipstick Negative (Negative); Specific Gravity, Urine 1.005 (1.002-1.030); Urine Bilirubin Dipstick Negative (Negative); Urine Clarity Clear (Clear); Urine Urobilinogen Normal (Normal)
[2021-11-04 03:25] LABS: Bacteria RARE /hpf (None Seen); Squamous Epithelial Cells - UA 0-5 SEEN /hpf (5-10)
[2021-11-04] MEDS: proMETHazine 25 MG/ML Syringe IM (04:18)
[2021-11-04] MEDS: HYDROmorphone 1 MG/ML Syringe IM (04:18)
[2021-11-04 05:00] VITALS: BP 107/62; PULSE 110; RESP 16; TEMP 36.9; O2SAT 100
[2021-11-04 05:07] LABS: Absolute Lymphocyte Count 2.31 X10^3/uL (0.83-4.51); Absolute Neutrophil Count 12.9 X10^3/uL (2.0-7.7); Basophil# 0.09 X10^3/uL; Basophil% 0.5 % (0-1); Eosinophil# 0.19 X10^3/uL; Eosinophils% 1.1 % (0-5); Hematocrit 35.5 % (37-47); Hemoglobin 11.8 g/dL (12.0-15.0); Lymphocyte # 2.31 X10^3/ul (0.83-4.51); Lymphocyte % 13.8 % (19-41); Mean Corp Hgb Conc 33.2 g/dL (32-36); Mean Corpuscular Hgb 30.2 pg (27.0-32.0); Mean Corpuscular Volume 90.8 fL (81-99); Mean Platelet Vol. 9.8 fl (6.2-12.0); Monocyte# 1.15 X10^3/uL; Monocyte% 6.9 % (0-10); NRBC Flagged by Analyzer 0 % (0-5); Neutrophil # 12.92 X10^3/uL (2.7-7.7); Neutrophil % 77.2 % (47-70); Platelet Count 294 K/mm3 (150-450); RBC Distribution Width CV 12.9 % (11.6-14.6); RBC Distribution Width SD 42.3 fl (35.1-43.9); Red Blood Count 3.91 M/mm3 (4.2-5.4); White Blood Count 16.8 K/mm3 (4.4-11.0)
[2021-11-04] MEDS: 0.9% Normal Saline 1,000 ML 1000 ML IV (05:08)
[2021-11-04 05:42] LABS: ALB/GLOB Ratio 0.9 RATIO (0.9-2.4); AST(SGOT) 35 U/L (15-37); Alanine Aminotransfer ALT/SGPT 49 U/L (13-56); Albumin, Serum 3.4 g/dL (3.2-5.0); Alkaline Phosphatase 124 U/L (45-117); Anion Gap 7 (5-15); BUN 10 mg/dL (7-18); BUN/Creat Ratio 15.4 RATIO (10-20); Calcium,Total 9.1 mg/dL (8.5-10.1); Chloride 104 mmol/L (98-107); Creatinine, Serum 0.65 mg/dL (0.55-1.02); EST Glomerular Filtration Rate 106 mL/min (>60); Est Glom Filt Rate - Afr Amer 128 mL/min (>60); Estimated Creatinine Clearance 89.17 ml/min; Globulin 3.7 g/dL (2.2-4.2); Glucose 116 mg/dL (74-106); Lipase 98 U/L (73-393); Protein, Total 7.1 g/dL (6.4-8.2); Sodium Level 138 mmol/L (136-145)
[2021-11-04] MEDS: HYDROmorphone 1 MG/ML Syringe IV (06:49)
[2021-11-04 07:03] VITALS: BP 110/64; PULSE 74; RESP 16; O2SAT 99
== END 2021-11-04 07:13 | disposition home or self-care (01) ==
PROVIDERS: Emergency Provider Emergency Medicine; PCP Family Medicine; Visit Provider Emergency Medicine
DX: R10.9 Unspecified abdominal pain (principal); K85.90 Acute pancreatitis without necrosis or infection, unspecified; K21.9 Gastro-esophageal reflux disease without esophagitis; G47.30 Sleep apnea, unspecified; J45.909 Unspecified asthma, uncomplicated; Z86.16 Personal history of COVID-19; Z87.891 Personal history of nicotine dependence; Z79.899 Other long term (current) drug therapy
CPT/HCPCS: 74176; 80053; 81001; 83690; 85025; 93005; 96365; 96372; 96375; 99282; A4216; J2405; J3490

== ENCOUNTER → 2023-03-30 | Outpatient (CLI) | payer MEDICAID, SELFPAY ==
--- NOTE | 2023-03-30 12:00 | BI_ITS ---
MAMMOGRAPHY - BILATERAL SCREENING REASON FOR EXAM: Female, 42 years old. Routine annual screening examination. PERTINENT HISTORY: Non-contributory. TECHNIQUE: Digital bilateral breast clari (3D mammographic acquisition) in the CC and MLO projections. 2-D mediolateral oblique (MLO) and craniocaudad (CC) views of both breasts were obtained. CAD: Full Field Digital Mammography with Computer Added Detection was performed. COMPARISON: Comparison is made with prior outside examination of February 17, 2022. FINDINGS: Breast Composition: The breasts are almost entirely fatty. There are no dominant masses or suspicious calcifications. Stable small benign-appearing bilateral axillary lymph nodes. No other significant abnormalities are identified. There has been no significant change since the prior study. BI/SCRN MAMM (CAD)W/CLARI BILAT IMPRESSION: Stable bilateral screening mammogram. Yearly follow-up mammogram recommended. (A) ASSESSMENT CATEGORY: BIRADS Category 2: Benign. A letter regarding these results will be sent to the patient by the facility within 30 days. Approximately 10% of breast cancers are not detected by mammography. A normal mammogram should not delay biopsy of a clinically suspicious abnormality. [id number] Electronically Signed: Christopher Beauchamp MD at 8:09 EST ,
== END | disposition home or self-care (01) ==
LOC: OPBI 11:56
PROVIDERS: PCP Family Medicine; Referring Provider Family Medicine; Visit Provider Family Medicine
DX: Z12.31 Encounter for screening mammogram for malignant neoplasm of breast (principal)
CPT/HCPCS: 77063; 77067

== ENCOUNTER → 2023-10-11 | Outpatient (CLI) | payer MEDICAID, SELFPAY ==
[2023-10-11 20:08] LABS: Amphetamine Urine VISTA NEGATIVE (<1000 ng/mL); Barbiturate Urine VISTA NEGATIVE (< 200 ng/mL); Benzodiazepine Urine VISTA NEGATIVE (< 200 ng/mL); Cocaine Urine VISTA NEGATIVE (< 300 ng/mL); Ecstacy Urine VISTA POSITIVE (< 500 ng/mL); Methadone Urine VISTA NEGATIVE (< 300 ng/mL); PCP Urine VISTA NEGATIVE (< 25 ng/mL); THC Urine VISTA NEGATIVE (< 50 ng/mL); Vista UDS pH Range 7
== END | disposition home or self-care (01) ==
PROVIDERS: PCP Family Medicine; Referring Provider Anesthesiology Pain Medicine; Visit Provider Anesthesiology Pain Medicine
DX: F11.20 Opioid dependence, uncomplicated (principal)
CPT/HCPCS: 80307

== ENCOUNTER → 2024-01-03 | Outpatient (CLI) | payer MEDICAID, SELFPAY ==
[2024-01-05 16:10] LABS: QNTFERON TB Mitogen Value > 10.00 IU/mL (.); QNTFERON TB Nil Value 0 IU/mL (.); QNTFERON TB1+ Ag Value 0 IU/mL (.); QNTFERON TB2+ Ag Value 0 IU/mL (.); QNTIFERON TB Positive Criteria Negative (Negative)
== END | disposition home or self-care (01) ==
PROVIDERS: PCP Family Medicine; Referring Provider Physician Assistant Medical; Visit Provider Physician Assistant Medical
DX: L40.0 Psoriasis vulgaris (principal); L71.8 Other rosacea; L02.425 Furuncle of right lower limb; Z79.899 Other long term (current) drug therapy
CPT/HCPCS: 36415; 86480

== ENCOUNTER → 2024-01-11 | Outpatient (CLI) | payer MEDICAID, SELFPAY ==
[2024-01-11 15:29] LABS: Absolute Lymphocyte Count 1.73 X10^3/uL (0.83-4.51); Absolute Neutrophil Count 6.4 X10^3/uL (2.0-7.7); Basophil# 0.04 X10^3/uL; Basophil% 0.5 % (0-1); Eosinophil# 0.01 X10^3/uL; Eosinophils% 0.1 % (0-5); Hematocrit 41.3 % (37-47); Hemoglobin 13.3 g/dL (12.0-15.0); Lymphocyte # 1.73 X10^3/ul (0.83-4.51); Lymphocyte % 20.3 % (19-41); Mean Corp Hgb Conc 32.2 g/dL (32-36); Mean Platelet Vol. 9.5 fl (6.2-12.0); Monocyte# 0.33 X10^3/uL; Monocyte% 3.9 % (0-10); NRBC Flagged by Analyzer 0 % (0-5); Neutrophil # 6.38 X10^3/uL (2.7-7.7); Neutrophil % 74.8 % (47-70); Platelet Count 323 K/mm3 (150-450); RBC Distribution Width CV 13.2 % (11.6-14.6); RBC Distribution Width SD 43.1 fl (35.1-43.9); Red Blood Count 4.59 M/mm3 (4.2-5.4); White Blood Count 8.5 K/mm3 (4.4-11.0)
[2024-01-11 15:47] LABS: ALB/GLOB Ratio 1.1 RATIO (0.9-2.4); AST(SGOT) 18 U/L (15-37); Alanine Aminotransfer ALT/SGPT 33 U/L (13-56); Alkaline Phosphatase 122 U/L (45-117); Anion Gap 4 (5-15); BUN 13 mg/dL (7-18); BUN/Creat Ratio 15.7 RATIO (10-20); Calcium,Total 9.8 mg/dL (8.5-10.1); Chloride 105 mmol/L (98-107); Creatinine, Serum 0.83 mg/dL (0.55-1.02); EST Glomerular Filtration Rate 80 mL/min (>60); Est Glom Filt Rate - Afr Amer 96 mL/min (>60); Globulin 3.5 g/dL (2.2-4.2); Glucose 96 mg/dL (74-106); Lipase 33 U/L (13-75); Potassium 3.9 mmol/L (3.5-5.1); Protein, Total 7.5 g/dL (6.4-8.2); Sodium Level 140 mmol/L (136-145)
== END | disposition home or self-care (01) ==
LOC: MTLAB 13:24
PROVIDERS: PCP Family Medicine
DX: R10.84 Generalized abdominal pain (principal); K21.9 Gastro-esophageal reflux disease without esophagitis; R79.89 Other specified abnormal findings of blood chemistry
CPT/HCPCS: 36415; 80053; 83690; 85025

== ENCOUNTER → 2024-01-21 | Outpatient (CLI) | payer MEDICAID, SELFPAY ==
[2024-01-21 15:41] LABS: Hepatitis B Surface Antibody Non-Reactive
[2024-01-23 08:08] LABS: HEPATITIS B SURFACE AG Negative (Negative); Hep C Antibodies Non Reactive (Non Reactive); Hepatitis A AB, Total Negative (Negative); Hepatitis A IgM Antibody Negative (Negative); Hepatitis B Core AB IgM Negative (Negative)
== END | disposition home or self-care (01) ==
PROVIDERS: PCP Family Medicine
DX: R79.89 Other specified abnormal findings of blood chemistry (principal); Z79.899 Other long term (current) drug therapy
CPT/HCPCS: 36415; 80074; 86706; 86708